=== PATIENT | male | born 1950 | race Caucasian/White ===

== ENCOUNTER → 2019-08-03 | Outpatient (CLI) | payer MEDICARE ==
--- NOTE | 2019-08-06 12:59 | PE ---
Nuclear medicine PET/CT HISTORY: Multiple myeloma, initial Patient received 10.8 mCi F-18 FDG intravenously in delayed scanning whole-body scanning was performe d. Localization and attenuation correction CT scan was performed. No comparisons Neck, head and chest: There is no evident cervical, supraclavicular,, axillary, mediastinal, or hilar adenopathy. No evident lung mass. There is a right pleural effusion present. Paraspinal increased so ft tissue within the chest may be field representative of extra medullary hematopoiesis, some mild increase d uptake noted in the paraspinal location at the level of the fifth and sixth ribs at the costoverteb ral junction on the left. ABDOMEN: No retroperitoneal adenopathy or ascites. No suspicious liver uptake. Osseous structures: There is abnormal uptake present within the ninth rib laterally on the right with SUV 4.5 as well as 6 rib anteriorly on the right with SUV 5.6, some mild associated bone expansion i s present at these levels. Overall mild increased uptake present within the bones may be due to marro w stimulation. The left ischium also show some mild increased uptake as compared to the right, SUV 5. 9. Postop changes in the right knee causing artifact, there is some mild uptake noted at this level and within the medullary aspect of the distal right femur. Mild uptake present at the posterior left calc aneus may be related to heel spur. Some mild increased uptake noted in the bilateral shoulders. IMPRESSION: Findings compatible with patient's history of multiple myeloma. Right pleural effusion, e xtra medullary hematopoiesis.
== END | disposition home or self-care (01) ==
LOC: RADPETMAIN 15:05
PROVIDERS: ATTEND Internal Medicine Medical Oncology
DX: J90 Pleural effusion, not elsewhere classified (principal); C90.00 Multiple myeloma not having achieved remission
CPT/HCPCS: 78815; A9552

== ENCOUNTER → 2019-08-14 | Outpatient (CLI) | payer MEDICARE ==
--- NOTE | 2019-08-14 12:42 | XR ---
EXAMINATION TYPE: XR thoracic spine complete DATE OF EXAM: 08/14/2019 CLINICAL HISTORY: Multiple myeloma. Mid back pain after coughing TECHNIQUE: Frontal, lateral, and swimmer's view of thoracic spine are obtained. COMPARISON: 08/03/2019 PET/CT FINDINGS: There are trace bilateral pleural effusions. The thoracic spine vertebral bodies maintain n ormal vertebral body height and alignment. There is slight underpenetration on the lateral view and o verpenetration on the frontal view making evaluation of bone marrow in this patient with multiple mye shweta suboptimal. Recent PET/CT was performed however, which better evaluated the bone marrow. Multile fernando small anterior osteophytes are seen of the thoracic spine. IMPRESSION: 1. No acute fracture or dislocation is seen in the thoracic spine. 2. Bone marrow is better evaluated on the recent PET/CT of 08/03/2019 for lytic lesions given suboptim al technique. 3. Mild degenerative disc disease of the thoracic spine.
== END | disposition home or self-care (01) ==
LOC: RADXRMAIN 11:42
PROVIDERS: ATTEND Internal Medicine Hematology & Oncology
DX: C90.00 Multiple myeloma not having achieved remission (principal); M51.34 Other intervertebral disc degeneration, thoracic region; E78.5 Hyperlipidemia, unspecified; Z71.3 Dietary counseling and surveillance
CPT/HCPCS: 72072

== ENCOUNTER 2019-08-28 15:47 | Observation (INO) | payer MEDICARE ==
[2019-08-28] MEDS ORDERED: SODIUM CHLORIDE 0.9% 1,000 ML IV STA (16:41)
[2019-08-28] MEDS ORDERED: PANTOPRAZOLE 40 MG/10 ML VIAL IVP STA (16:41)
[2019-08-28] MEDS ORDERED: HYDROmorphone 1 MG/ML 1 ML SYRINGE IVP STA (16:42)
--- NOTE | 2019-08-28 16:46 | ED ---
Abdominal Pain HPI - General Chief Complaint: Abdominal Pain Stated Complaint: Abd.pain Time Seen by Provider: 08/28/19 16:00 Source: patient, RN notes reviewed Mode of arrival: ambulatory Limitations: no limitations - History of Present Illness Initial Comments: This is a 68-year-old male with a recent diagnosis of multiple myeloma which was apparently discovered after right knee surgery in June this past year who states he was sent in from his doctor's office for admission because of abdominal pain. He was seen here previously for abdominal pain discharge she seems related to be worse with movement in upright positioning at rest sees 2- 3/10 severity is up to a when he is moving and upright. He also relates it to perhaps taking his oral steroids. He denies any nausea vomiting fevers chills sweats no diarrhea he states his stool was low but darker than usual but no overt melena or bright red blood or dark red blood. No prior history of abdominal surgeries. No history of ulcers. There is a report that his hemoglobin was 10 and his symptoms dropped. MD Complaint: abdominal pain - Related Data Allergies Allergy/AdvReac Type Severity Reaction Status Date / Time No Known Allergies Allergy Verified 08/20/19 15:05 Review of Systems ROS Statement: Those systems with pertinent positive or pertinent negative responses have been documented in the HPI. ROS Other: All systems not noted in ROS Statement are negative. Past Medical History Past Medical History: Hyperlipidemia Additional Past Medical History / Comment(s): multiple myeloma diagnosed 06/2019. History of Any Multi-Drug Resistant Organisms: None Reported Past Surgical History: Orthopedic Surgery Past Psychological History: No Psychological Hx Reported Smoking Status: Never smoker Past Alcohol Use History: Rare Past Drug Use History: None Reported General Exam - General Exam Comments Initial Comments: This is a well-developed well-nourished awake alert oriented 3 male Limitations: no limitations General appearance: alert, anxious Head exam: Present: atraumatic, normocephalic, normal inspection Eye exam: Present: normal appearance, PERRL, EOMI. Absent: scleral icterus, conjunctival injection, periorbital swelling ENT exam: Present: normal exam, mucous membranes moist Neck exam: Present: normal inspection. Absent: tenderness, meningismus, lymphadenopathy Respiratory exam: Present: normal lung sounds bilaterally. Absent: respiratory distress, wheezes, rales, rhonchi, stridor Cardiovascular Exam: Present: regular rate, normal rhythm, normal heart sounds. Absent: systolic murmur, diastolic murmur, rubs, gallop, clicks GI/Abdominal exam: Present: soft, normal bowel sounds. Absent: distended, tenderness, guarding, rebound, rigid Rectal exam: Present: deferred Extremities exam: Present: normal inspection, full ROM, normal capillary refill. Absent: tenderness, pedal edema, joint swelling, calf tenderness Back exam: Present: normal inspection Neurological exam: Present: alert, oriented X3, CN II-XII intact Psychiatric exam: Present: normal affect, normal mood Skin exam: Present: warm, dry, intact, normal color. Absent: rash Course Vital Signs 08/28/19 15:48 Temperature 97.7 F Pulse Rate 75 Respiratory 17 Rate Blood Pressure 114/73 O2 Sat by Pulse 95 Oximetry Medical Decision Making - Medical Decision Making Case was discussed with Dr. Villanueva the patient will be admitted with GI consultation replaced IV fluids IV Protonix. Disposition Clinical Impression: Abdominal pain, Anemia, Multiple myeloma Disposition: ADMITTED IP TO THIS HOSP Condition: Fair Referrals: Boom Galvan MD [Primary Care Provider] - 1-2 days
[2019-08-28] MEDS ORDERED: NALOXONE 0.4 MG/ML 1 ML VIAL IV PRN (16:52)
[2019-08-28] MEDS: SODIUM CHLORIDE 0.9% 1,000 ML IV SCH (17:11)
[2019-08-28 17:21] LABS: ALT 140 U/L (4-49); AST 65 U/L (17-59); African American GFR (CKD) >90 (>60 ml/min/1.73 sqM); Albumin 3.7 g/dL (3.5-5.0); Alkaline Phosphatase 112 U/L (38-126); Amylase 50 U/L (30-110); Anion Gap 8 mmol/L; Blood Urea Nitrogen 19 mg/dL (9-20); Carbon Dioxide 30 mmol/L (22-30); Chloride 99 mmol/L (98-107); Creatine Kinase 39 U/L (55-170); Glucose 99 mg/dL (74-99); Non-African American GFR(CKD) 88 (>60 ml/min/1.73 sqM); Sodium 137 mmol/L (137-145); Total Protein 8.8 g/dL (6.3-8.2)
[2019-08-28 17:22] LABS: HCT 33.3 % (39.0-53.0); HGB 11.1 gm/dL (13.0-17.5); MCH 32.9 pg (25.0-35.0); MCHC 33.2 g/dL (31.0-37.0); MCV 98.9 fL (80.0-100.0); Macrocytosis Slight; Mean Platelet Volume 7.9; RBC 3.37 m/uL (4.30-5.90); RDW 15.4 % (11.5-15.5)
[2019-08-28 17:34] LABS: INR 1.1 (<1.2); Partial Thromboplastin Time 20.8 sec (22.0-30.0); Prothrombin Time 11.5 sec (9.0-12.0)
--- NOTE | 2019-08-28 17:34 | XR ---
EXAMINATION TYPE: XR KUB DATE OF EXAM: 08/28/2019 COMPARISON: NONE HISTORY: Pain TECHNIQUE: 2 views upright FINDINGS: There is no sign of intestinal obstruction or pneumoperitoneum. Fecal pattern is fairly nor mal. There is blunting of the costophrenic angles. There is some atelectasis right lung base. IMPRESSION: Pleural effusions and basilar atelectasis. No free air.
[2019-08-28 18:05] LABS: Band Neutrophils % 3 %; Lymphocytes # (M) 2.94 k/uL (1.0-4.8); Neutrophils % (M) 34 %; Nucleated Red Blood Cells 6 /100 WBC (0-0); Total Cells Counted 200; WBC 4.9 k/uL (3.8-10.6)
[2019-08-28 18:07] LABS: Platelet Count 46 k/uL (150-450); Polychromasia Present
[2019-08-28] MEDS ORDERED: DICYCLOMINE 10 MG CAP PO STA (18:10)
[2019-08-28] MEDS: HYDROmorphone 1 MG/ML 1 ML SYRINGE IVP PRN (21:10)
[2019-08-29 00:17] LABS: MCH 33.6 pg (25.0-35.0); MCV 98.8 fL (80.0-100.0); Macrocytosis Slight; Mean Platelet Volume 7.5; RBC 2.83 m/uL (4.30-5.90); RDW 15.6 % (11.5-15.5); WBC 4.7 k/uL (3.8-10.6)
[2019-08-29 00:23] LABS: Platelet Count 49 k/uL (150-450)
[2019-08-29 00:25] LABS: HGB 9.5 gm/dL (13.0-17.5)
[2019-08-29] MEDS: PANTOPRAZOLE 40 MG/10 ML VIAL IV SCH ×2 (02:10→10:03)
[2019-08-29 02:14] VITALS: RESP 16
[2019-08-29] MEDS: HYDROmorphone 1 MG/ML 1 ML SYRINGE IVP PRN ×3 (02:15→11:16)
[2019-08-29] MEDS: SODIUM CHLORIDE 0.9% 1,000 ML IV SCH ×2 (02:21→09:56)
[2019-08-29 02:45] LABS: Appearance,Urine Clear (Clear); Bacteria,Urine Rare /hpf; Bilirubin,Urine Negative (Negative); Blood,Urine Negative (Negative); Color,Urine Yellow; Glucose,Urine (UA) Negative (Negative); Ketones,Urine Negative (Negative); Leukocyte Esterase,Urine Trace (Negative); Mucus,Urine Few /hpf; Nitrite,Urine Negative (Negative); Protein,Urine 1+ (Negative); RBC,Urine 1 /hpf (0-5); Urobilinogen,Urine <2.0 mg/dL (<2.0); WBC,Urine 13 /hpf (0-5)
[2019-08-29] MEDS ORDERED: HYDROcodone/APAP 5-325MG 1 EACH TAB PO PRN (10:39)
[2019-08-29 10:52] LABS: HCT 29.6 % (39.0-53.0); MCH 33.5 pg (25.0-35.0); MCHC 33.9 g/dL (31.0-37.0); MCV 98.9 fL (80.0-100.0); Macrocytosis Slight; Mean Platelet Volume 7.9; RDW 15.6 % (11.5-15.5); WBC 4.8 k/uL (3.8-10.6)
[2019-08-29 10:53] LABS: Platelet Count 42 k/uL (150-450)
[2019-08-29 10:55] LABS: Albumin 3.4 g/dL (3.5-5.0); Calcium 9.6 mg/dL (8.4-10.2); Potassium 4.2 mmol/L (3.5-5.1); Total Bilirubin 0.9 mg/dL (0.2-1.3); Total Protein 8.1 g/dL (6.3-8.2)
[2019-08-29] MEDS ORDERED: LIDOCAINE 1% INJ 10MG/ML (20 ML MDV) ONE (12:20)
[2019-08-29] MEDS ORDERED: PROPOFOL 10 MG/ML 20 ML VIAL IV ONE (12:20)
[2019-08-29] MEDS ORDERED: IV FLUID CONTINUATION 1,000 ML IV ONE (12:20)
[2019-08-29] MEDS ORDERED: DICYCLOMINE 20 MG TAB PO PRN (12:50)
--- NOTE | 2019-08-29 13:58 | P.HPIM ---
History of Present Illness H&P Date: 08/29/19 HISTORY AND PHYSICAL AND DISCHARGE SUMMARY: This is a 68-year-old male patient of Dr. Galvan with past medical history of multiple myeloma, diagnosed and June 2019. Patient was at [facility] for bilateral knee surgery and was found to have abnormal lab work. Only one knee, right knee arthroplasty was completed and patient subsequent only followed up with Dr. Phillips, diagnosed with multiple myeloma and started chemotherapy on August 14. Patient is on dexamethasone 40 mg every week on Tuesday and he started Velcade on August 21 and receives this on Tuesdays and Fridays in the clinic. Patient is also on Revlimid for 14 days straight. Patient was in the doctor's office regarding abdominal pain seemed to be worse with positioning. It seems to started when he started taking steroids. He denies having any nausea, vomiting, fever, chills, diarrhea. No obvious tarry stool or bright red bleeding rectally. She also has history of pleural effusion that is being monitored by oncology, osteoarthritis. Patient came into [facility] emergency center for evaluation. He was found to have hemoglobin of 11.1 followed by 9.5 and [address] Villanueva spoke with Dr. Argueta early this morning at [facility] regarding this patient and he was thus set up for EGD. Patient remains in the emergency center and was started on Bentyl, Protonix IV twice daily and IV fluids. Patient subsequently underwent EGD and has been cleared by for discharge home. EGD revealed mild gastritis antrum body biopsy, duodenal biopsies. Pathology report reveals mild chronic gastritis. H. pylori not identified. No biopsy negative for histopathologic abnormality. Review of Systems Constitutional: Denies chills, Denies fatigue, Denies fever, Denies lethargy, Denies malaise, Denies poor appetite Eyes: denies blurred vision, denies pain Ears, nose, mouth and throat: Denies headache, Denies sore throat, Denies vertigo Cardiovascular: Denies chest pain, Denies decreased exercise tolerance, Denies dyspnea on exertion, Denies leg edema, Denies lightheadedness, Denies shortness of breath, Denies syncope Respiratory: Denies cough, Denies cough with sputum, Denies dyspnea, Denies excessive sputum, Denies hemoptysis, Denies home oxygen, Denies sleep apnea Gastrointestinal: Denies abdominal pain, Denies change in bowel habits, Denies diarrhea, Denies loss of appetite, Denies nausea, Denies vomiting Genitourinary: Denies dysuria, Denies urinary frequency, Denies urinary hesitancy Musculoskeletal: Denies low back pain Integumentary: Denies pruritus, Denies rash Neurological: Denies numbness, Denies weakness Psychiatric: Denies anxiety, Denies depression Endocrine: Denies fatigue, Denies weight change Past Medical History Past Medical History: Hyperlipidemia Additional Past Medical History / Comment(s): multiple myeloma diagnosed 06/2019. History of Any Multi-Drug Resistant Organisms: None Reported Past Surgical History: Orthopedic Surgery Additional Past Surgical History / Comment(s): Right total knee arthroplasty with previous arthroscopically on bilateral knees, 2 arthroscopics on shoulders, left elbow, EGD Past Psychological History: No Psychological Hx Reported Smoking Status: Never smoker Past Alcohol Use History: Rare Additional Past Alcohol Use History / Comment(s): Patient is a lifelong nonsmoker, no illicit drug use, no marijuana use. Occasional alcohol use. Past Drug Use History: None Reported - Past Family History Father Additional Family Medical History / Comment(s): Father is alive at age 93 yrs old with no major medical problems. He has had a total hip replacement. Mother Family Medical History: Cancer Additional Family Medical History / Comment(s): Mother at age 69 from Multiple myeloma/bone cancer. Brother(s) Additional Family Medical History / Comment(s): Patient has 1 brother that is alive at age 72 with no major medical problems. Patient does not have any sisters. Patient has 2 sons with no major medical problems. Medications and Allergies Home Medications Medication Instructions Recorded Confirmed Type Aspirin EC [Ecotrin Low Dose] 81 mg PO HS 08/28/19 08/28/19 History Atorvastatin Calcium [Lipitor] 10 mg PO HS 08/28/19 08/28/19 History Bortezomib 1 dose IV TUFR 08/28/19 08/28/19 History Dexamethasone 40 mg PO TU 08/28/19 08/28/19 History HYDROcodone/APAP 5-325MG [[place] 1 tab PO Q6H PRN 08/28/19 08/28/19 History 5-325] Lenalidomide [Revlimid] 25 mg PO DIRECTED 08/28/19 08/28/19 History Omeprazole 20 mg PO DAILY 08/28/19 08/28/19 History Ondansetron HCl [Zofran] 4 mg PO Q8H PRN 08/28/19 08/28/19 History Sucralfate [Carafate] 1 gm PO ACHS 08/28/19 08/28/19 History Dicyclomine [Bentyl] 20 mg PO QID PRN 30 Days #90 tab 08/29/19 Rx Pantoprazole Sodium [Protonix] 40 mg PO BID #60 tablet. 08/29/19 Rx Allergies Allergy/AdvReac Type Severity Reaction Status Date / Time No Known Allergies Allergy Verified 08/28/19 17:58 Physical Exam Vitals: Vital Signs Temp Pulse Resp BP Pulse Ox 08/29/19 07:32 79 16 126/89 100 08/29/19 02:12 97.9 F 94 16 112/79 94 L 08/28/19 20:07 98.2 F 87 18 110/59 93 L 08/28/19 15:48 97.7 F 75 17 114/73 95 Intake and Output 08/28/19 08/29/19 08/29/19 22:59 06:59 14:59 Other: # Voids 2 Weight 114.441 kg Gen: This is a 68-year-old male. Patient is resting on the ER stretcher and appears to be comfortable and in no acute distress. Patient's is at bedside. HEENT: Head is atraumatic, normocephalic. Pupils equal, round. Sclerae is anicteric. NECK: Supple. No JVD. No lymphadenopathy. No thyromegaly. LUNGS: Diminished at the bases bilaterally. Clear to auscultation. No wheezes or rhonchi. No intercostal retractions. HEART: Regular rate and rhythm. No murmur. ABDOMEN: Soft. Bowel sounds are present. No masses. Epigastric tenderness. EXTREMITIES: Trace bilateral pedal edema. No calf tenderness. NEUROLOGICAL: Patient is awake, alert and oriented x3. Cranial nerves 2 through 12 are grossly intact. Results CBC & Chem 7: 08/29/19 10:23 08/29/19 10:23 Labs: Abnormal Lab Results - Last 24 Hours (Table) 08/28/19 08/28/19 08/28/19 Range/Units 16:55 16:55 16:55 RBC 3.37 L (4.30-5.90) m/uL Hgb 11.1 L (13.0-17.5) gm/dL Hct 33.3 L (39.0-53.0) % RDW (11.5-15.5) % Plt Count 46 L (150-450) k/uL Nucleated RBCs 6 H (0-0) /100 WBC APTT 20.8 L (22.0-30.0) sec AST 65 H (17-59) U/L ALT 140 H (4-49) U/L Creatine Kinase 39 L (55-170) U/L Total Protein 8.8 H (6.3-8.2) g/dL Urine Protein (Negative) Ur Leukocyte Esterase (Negative) Urine WBC (0-5) /hpf Urine Bacteria (None) /hpf Urine Mucus (None) /hpf 08/28/19 08/29/19 Range/Units 23:44 02:31 RBC 2.83 L (4.30-5.90) m/uL Hgb 9.5 L D (13.0-17.5) gm/dL Hct 28.0 L (39.0-53.0) % RDW 15.6 H (11.5-15.5) % Plt Count 49 L (150-450) k/uL Nucleated RBCs (0-0) /100 WBC APTT (22.0-30.0) sec AST (17-59) U/L ALT (4-49) U/L Creatine Kinase (55-170) U/L Total Protein (6.3-8.2) g/dL Urine Protein 1+ H (Negative) Ur Leukocyte Esterase Trace H (Negative) Urine WBC 13 H (0-5) /hpf Urine Bacteria Rare H (None) /hpf Urine Mucus Few H (None) /hpf Assessment and Plan Plan: 1. Steroid induced gastritis. Patient will be discharged home on Protonix 40 mg twice daily. 2. Multiple myeloma on prednisone weekly along with Velcade and Revlimid. 3. Osteoarthritis status post right total knee arthroplasty, stable with generalized osteoarthritis. 4. Anemia of chronic disease,. Patient placed as an observation status. Discharge plan: Home Discharge Medication List Aspirin EC [Ecotrin Low Dose] 81 mg PO HS 08/28/19 [History] Atorvastatin Calcium [Lipitor] 10 mg PO HS 08/28/19 [History] Bortezomib 1 dose IV TUFR 08/28/19 [History] Dexamethasone 40 mg PO TU 08/28/19 [History] HYDROcodone/APAP 5-325MG [[place] 5-325] 1 tab PO Q6H PRN 08/28/19 [History] Lenalidomide [Revlimid] 25 mg PO DIRECTED 08/28/19 [History] Omeprazole 20 mg PO DAILY 08/28/19 [History] Ondansetron HCl [Zofran] 4 mg PO Q8H PRN 08/28/19 [History] Sucralfate [Carafate] 1 gm PO ACHS 08/28/19 [History] Dicyclomine [Bentyl] 20 mg PO QID PRN 30 Days #90 tab 08/29/19 [Rx] Pantoprazole Sodium [Protonix] 40 mg PO BID #60 tablet. 08/29/19 [Rx] Impression and plan of care have been directed as dictated by the signing physician. Didi Edmond nurse practitioner acting as scribe for signing physician.
[2019-08-29 14:23] VITALS: BP 155/83; PULSE 89; TEMP 98.4
--- NOTE | 2019-08-30 15:25 | P.CONS ---
History of Present Illness - Reason for Consult Consult date: 08/29/19 Abdominal pain Requesting physician: Citlali Villanueva - Chief Complaint Abdominal pain - History of Present Illness 68-year-old male with a medical history significant for multiple myeloma status post 2 cycles of chemotherapy for which he was treated with dexamethasone, Velca de and Revlimid presented to the hospital due to complaints of severe abdominal pain. The patient reports severe epigastric abdominal pain which she feels is worse with eating. Pain is sharp and intense without radiation. No prior episodes of similar pain. He denies any NSAID use. No prior EGD. Colonoscopy was approximately 6 months ago. On presentation hemoglobin found to be 9.5 and then 10 on repeat blood draw with WBC 4.8 and platelet count 42,000. Review of Systems REVIEW OF SYSTEMS: CONSTITUTIONAL: Denies any fevers, chills, weight change or fatigue. CARDIOVASCULAR: Denies any chest pain, palpitations high or low blood pressures RESPIRATORY: Denies any shortness of breath, hemoptysis or cough. GENITOURINARY: No dysuria or hematuria. MUSCULOSKELETAL: No weakness reported. SKIN: Denies any new rashes or lesions, jaundice or pallor. PSYCHIATRIC: Denies any depression or anxiety. NEUROLOGY: Denies headache, denies any new focal deficits. EARS/NOSE/THROAT: No recent hearing change, congestion, nasal discharge or sore throat. EYES: No pain in eyes, discharge or change in vision. GASTROINTESTINAL: As per HPI. Past Medical History Past Medical History: Hyperlipidemia Additional Past Medical History / Comment(s): multiple myeloma diagnosed 08/2018. History of Any Multi-Drug Resistant Organisms: None Reported Past Surgical History: Orthopedic Surgery Past Psychological History: No Psychological Hx Reported Smoking Status: Never smoker Past Alcohol Use History: Rare Past Drug Use History: None Reported - Past Family History Father Additional Family Medical History / Comment(s): Father is alive at age 93 yrs old with no major medical problems. He has had a total hip replacement. Mother Family Medical History: Cancer Additional Family Medical History / Comment(s): Mother at age 69 from Multiple myeloma/bone cancer. Brother(s) Additional Family Medical History / Comment(s): Patient has 1 brother that is alive at age 72 with no major medical problems. Patient does not have any sisters. Patient has 2 sons with no major medical problems. Medications and Allergies Home Medications Medication Instructions Recorded Confirmed Type Aspirin EC [Ecotrin Low Dose] 81 mg PO HS 08/28/19 08/28/19 History Atorvastatin Calcium [Lipitor] 10 mg PO HS 08/28/19 08/28/19 History Bortezomib 1 dose IV TUFR 08/28/19 08/28/19 History Dexamethasone 40 mg PO TU 08/28/19 08/28/19 History HYDROcodone/APAP 5-325MG [[place] 1 tab PO Q6H PRN 08/28/19 08/28/19 History 5-325] Lenalidomide [Revlimid] 25 mg PO DIRECTED 08/28/19 08/28/19 History Omeprazole 20 mg PO DAILY 08/28/19 08/28/19 History Ondansetron HCl [Zofran] 4 mg PO Q8H PRN 08/28/19 08/28/19 History Sucralfate [Carafate] 1 gm PO ACHS 08/28/19 08/28/19 History Dicyclomine [Bentyl] 20 mg PO QID PRN 30 Days #90 tab 08/29/19 Rx Pantoprazole Sodium [Protonix] 40 mg PO BID #60 tablet. 08/29/19 Rx Allergies Allergy/AdvReac Type Severity Reaction Status Date / Time No Known Allergies Allergy Verified 08/28/19 17:58 Physical Exam Vitals: Vital Signs Temp Pulse Resp BP Pulse Ox 08/29/19 07:32 79 16 126/89 100 08/29/19 02:12 97.9 F 94 16 112/79 94 L 08/28/19 20:07 98.2 F 87 18 110/59 93 L 08/28/19 15:48 97.7 F 75 17 114/73 95 Intake and Output 08/28/19 08/29/19 08/29/19 22:59 06:59 14:59 Other: # Voids 2 Weight 114.441 kg On physical examination, patient appears comfortable in no apparent distress. HEAD: Normocephalic, atraumatic. EYES: No scleral icterus. No conjunctival injection. MOUTH: No lesions, tongue midline. NECK: Trachea midline, no gross abnormalities. CHEST: Clear to auscultation with no wheezing or rhonchi appreciated. HEART: Regular rate and rhythm. ABDOMEN: Soft, obese. Bowel sounds are positive. No organomegaly. No guarding or rigidity. EXTREMITIES: No pedal edema. SKIN: No rashes, no jaundice. NEUROLOGIC: Alert and oriented x3. No focal deficits. Results CBC & Chem 7: 08/29/19 10:23 08/29/19 10:23 Labs: Abnormal Lab Results - Last 24 Hours (Table) 08/28/19 08/28/19 08/28/19 Range/Units 16:55 16:55 16:55 RBC 3.37 L (4.30-5.90) m/uL Hgb 11.1 L (13.0-17.5) gm/dL Hct 33.3 L (39.0-53.0) % RDW (11.5-15.5) % Plt Count 46 L (150-450) k/uL Nucleated RBCs 6 H (0-0) /100 WBC APTT 20.8 L (22.0-30.0) sec Chloride (98-107) mmol/L Glucose (74-99) mg/dL AST 65 H (17-59) U/L ALT 140 H (4-49) U/L Creatine Kinase 39 L (55-170) U/L Total Protein 8.8 H (6.3-8.2) g/dL Albumin (3.5-5.0) g/dL Urine Protein (Negative) Ur Leukocyte Esterase (Negative) Urine WBC (0-5) /hpf Urine Bacteria (None) /hpf Urine Mucus (None) /hpf 08/28/19 08/29/19 08/29/19 Range/Units 23:44 02:31 10:23 RBC 2.83 L 3.00 L (4.30-5.90) m/uL Hgb 9.5 L D 10.0 L (13.0-17.5) gm/dL Hct 28.0 L 29.6 L (39.0-53.0) % RDW 15.6 H 15.6 H (11.5-15.5) % Plt Count 49 L 42 L (150-450) k/uL Nucleated RBCs (0-0) /100 WBC APTT (22.0-30.0) sec Chloride (98-107) mmol/L Glucose (74-99) mg/dL AST (17-59) U/L ALT (4-49) U/L Creatine Kinase (55-170) U/L Total Protein (6.3-8.2) g/dL Albumin (3.5-5.0) g/dL Urine Protein 1+ H (Negative) Ur Leukocyte Esterase Trace H (Negative) Urine WBC 13 H (0-5) /hpf Urine Bacteria Rare H (None) /hpf Urine Mucus Few H (None) /hpf 08/29/19 Range/Units 10:23 RBC (4.30-5.90) m/uL Hgb (13.0-17.5) gm/dL Hct (39.0-53.0) % RDW (11.5-15.5) % Plt Count (150-450) k/uL Nucleated RBCs (0-0) /100 WBC APTT (22.0-30.0) sec Chloride 97 L (98-107) mmol/L Glucose 106 H (74-99) mg/dL AST (17-59) U/L ALT 130 H (4-49) U/L Creatine Kinase (55-170) U/L Total Protein (6.3-8.2) g/dL Albumin 3.4 L (3.5-5.0) g/dL Urine Protein (Negative) Ur Leukocyte Esterase (Negative) Urine WBC (0-5) /hpf Urine Bacteria (None) /hpf Urine Mucus (None) /hpf Microbiology - Last 24 Hours (Table) 08/29/19 02:31 Urine Culture - Preliminary Urine,Clean Catch Abdominal x-ray: report reviewed (No acute intra-abdominal findings on abdominal x-ray.) Assessment and Plan (1) Abdominal pain Narrative/Plan: 68-year-old male reporting epigastric abdominal pain described as sharp and intense. He does feel pain may be positional and worse with a deep breath. Patient has been on high-dose steroid therapy. Unclear if symptoms are secondary to peptic ulcer disease, gastritis, esophagitis or other GI-related pathology or secondary to bone infiltration from multiple myeloma. Status: Acute Code(s): R10.9 - UNSPECIFIED ABDOMINAL PAIN SNOMED Code(s): 06889858 (2) Multiple myeloma Status: Acute Code(s): C90.00 - MULTIPLE MYELOMA NOT HAVING ACHIEVED REMISSION SNOMED Code(s): 631737263 Plan: Supportive care Nothing by mouth PPI therapy Plan for urgent EGD for further evaluation Further recommendations pending findings of EGD Thank you for allowing us to participate in the care of the patient
--- NOTE | 2019-08-30 15:34 | P.PCN ---
Date of Procedure: 08/29/19 Description of Procedure: BRIEF HISTORY: 68-year-old male with a medical history significant for multiple myeloma status post 2 cycles of chemotherapy for which he was treated with dexamethasone, Velcade and Revlimid presented to the hospital due to complaints of severe abdominal pain. The patient reports severe epigastric abdominal pain which she feels is worse with eating. Pain is sharp and intense without radiation. No prior episodes of similar pain. He denies any NSAID use. No prior EGD. Colonoscopy was approximately 6 months ago. On presentation hemoglobin found to be 9.5 and then 10 on repeat blood draw with WBC 4.8 and platelet count 42,000. PROCEDURE PERFORMED: Esophagogastroduodenoscopy with biopsy. PREOPERATIVE DIAGNOSIS: Epigastric abdominal pain, anemia. ESTIMATED BLOOD LOSS: Minimal. IV sedation per anesthesia. PROCEDURE: After informed consent was obtained, the patient was brought into the endoscopy unit. IV sedation was administered by Anesthesia under continuous monitoring. Initially the Olympus GIF-190 video endoscope was inserted into the mouth. Esophagus intubated without any difficulty. It was gradually advanced into the stomach and duodenum and carefully examined. The bulb and the second part of the duodenum appeared normal, with biopsies taken. The scope at this time was withdrawn to the stomach, adequately insufflated with air, and upon careful examination, mucosa of the antrum, body, cardia and the fundus appeared normal, except for some mild punctate erythema in the antrum and body suggestive of mild gastritis with biopsies taken. The scope was then withdrawn into the esophagus. The GE junction was located at 39 cm from the incisors. The esophagus appeared normal. There were no erosions or ulcerations seen and the patient tolerated the procedure well. IMPRESSION: 1. Mild gastritis antrum body, biopsied. 2. Duodenal biopsies. RECOMMENDATIONS: The findings of this examination were discussed with the patient and his . Okay to resume diet. Continue PPI therapy. We'll provide the patient with a trial of Bentyl therapy, otherwise okay for discharge home if otherwise medically stable.
== END 2019-08-29 14:21 | disposition home or self-care (01) ==
LOC: EC 15:47 → 4SSUR 16:52 → 5NMEDONC 23:16
PROVIDERS: ADMIT Family Medicine; ATTEND Family Medicine
DX: K29.50 Unspecified chronic gastritis without bleeding (principal); C90.00 Multiple myeloma not having achieved remission; M15.0 Primary generalized (osteo)arthritis; E78.5 Hyperlipidemia, unspecified; D63.8 Anemia in other chronic diseases classified elsewhere; J90 Pleural effusion, not elsewhere classified; Z79.82 Long term (current) use of aspirin; Z79.891 Long term (current) use of opiate analgesic; Z79.52 Long term (current) use of systemic steroids; Z79.899 Other long term (current) drug therapy; Z96.651 Presence of right artificial knee joint; Z80.7 Family history of other malignant neoplasms of lymphoid, hematopoietic and related tissues; Z80.8 Family history of malignant neoplasm of other organs or systems; Z92.21 Personal history of antineoplastic chemotherapy
CPT/HCPCS: 96376 ×2; 96361 ×2; 96374; 96375; 99285; 36415; 86900; 86901; 88305; 80053 ×2; 82150; 82550; 83690; 84484; 85025; 85027 ×2; 85610; 85730; 86850; 81001; 87086; 87077; 87186; 74018; 43239; G0378 ×2; J2001; J1170 ×2; J2704; C9113 ×2

== ENCOUNTER → 2019-09-11 | Outpatient (CLI) | payer MEDICARE ==
--- NOTE | 2019-09-11 15:50 | CT ---
EXAMINATION TYPE: CT angio chest DATE OF EXAM: 09/11/2019 COMPARISON: 08/20/2019 HISTORY: 68-year-old male SOB. Hx multiple myeloma, pleural effusion. TECHNIQUE: Contiguous axial scanning of the chest performed with IV Contrast, patient injected with 1 00 mL of Isovue 370. Coronal/sagittal MIP reconstructions performed. CT DLP: 541.50 mGycm Automated exposure control for dose reduction was used. FINDINGS: Heart normal size with trace anterior basilar pericardial fluid. No flattening of the interventricula r septum or reflux of contrast into the hepatic veins. Ectatic aortic root at 3.7 cm. Conventional arch vessel branching anatomy. No thoracic lymphadenopathy by CT size criteria. Borderline suboptimal opacification of the pulmonary arterial system. Motion artifacts in the left lo wer lobe limiting assessment of the segmental and more distal arterial branches. Unable to exclude em boli in these locations. No evidence for pulmonary embolus elsewhere within the lungs. Moderate right and small left pleural effusions, similar to slightly increased in size from 08/20/2019. There is adjacent partial atelectasis of the basilar right lower lobe and subsegmental atelectasis b asilar left lower lobe. There seems to be cortical lucency involving the right lateral ninth rib, axial image 143. Old healed left-sided rib fracture deformity. A few bilateral ribs show callus of subacute to chronic fracture deformities. These were present back on 08/03/2019. New band of atelectasis right midlung. No other consolidation or pleural effusion seen. Spleen remains enlarged measuring at least 15.9 cm. Bones: Diffuse osseous heterogeneity with scattered areas of focal lucency. Minimal overall vertebral body height loss of T6 remains unchanged from 08/20/2013. Anterior endplate spondylosis lower thoracic spine. No new vertebral compression collapse. IMPRESSION: 1. BORDERLINE SUBOPTIMAL CONTRAST BOLUS. ADDITIONALLY, MOTION ARTIFACT IN THE LEFT LOWER LOBE FURTHER LIMITING ASSESSMENT. SEGMENTAL AND MORE DISTAL ARTERIAL BRANCHES IN THE LEFT LOWER LOBE ARE NONDIAGN OSTIC AND EMBOLI IN THESE LOCATIONS CANNOT BE EXCLUDED ON THE BASIS OF THIS EXAM. NO DEFINITE PULMONA RY EMBOLUS SEEN ELSEWHERE WITHIN THE LUNGS. 2. MODERATE RIGHT AND SMALL LEFT PLEURAL EFFUSION WITH PROMINENT ADJACENT ATELECTASIS, SIMILAR TO SLI GHTLY INCREASED FROM 08/20/2019. 3. THERE MAY BE A SUBTLE NONDISPLACED FRACTURE OF THE RIGHT LATERAL NINTH RIB. CORRELATE FOR ANY FOCA L PAIN HERE. OTHERWISE, MULTIPLE SCATTERED SUBACUTE TO CHRONIC RIB FRACTURES. 4. DIFFUSE OSSEOUS HETEROGENEITY IN KEEPING WITH PATIENT'S KNOWN MULTIPLE MYELOMA. SPLENOMEGALY OF 16 CM.
== END | disposition home or self-care (01) ==
LOC: RADCTMAIN 14:43
PROVIDERS: ATTEND Internal Medicine Hematology & Oncology
DX: C90.00 Multiple myeloma not having achieved remission (principal); J90 Pleural effusion, not elsewhere classified; J98.11 Atelectasis; S22.49XA Multiple fractures of ribs, unspecified side, initial encounter for closed fracture
CPT/HCPCS: 71275; Q9967

== ENCOUNTER 2019-09-21 08:20 | Day surgery (SDC) | payer MEDICARE ==
[2019-09-21 09:42] LABS: Mean Platelet Volume 9.1
[2019-09-21 09:48] LABS: Platelet Count 34 k/uL (150-450)
[2019-09-21 09:50] LABS: INR 1.1 (<1.2); Prothrombin Time 11.1 sec (9.0-12.0)
[2019-09-21 10:47] VITALS: RESP 18
--- NOTE | 2019-09-21 11:34 | XR ---
EXAMINATION TYPE: XR chest 1V portable DATE OF EXAM: 09/21/2019 COMPARISON: NONE HISTORY: Status post right-sided thoracentesis TECHNIQUE: Single frontal view of the chest is obtained. FINDINGS: There are trace bilateral pleural effusions. Cardiomediastinal silhouette is upper limits of normal size. No postprocedural pneumothorax seen. No pulmonary vascular congestion. Osseous struct ures appear intact. Surgical anchor of the left humerus. IMPRESSION: Trace bilateral pleural effusions. No postprocedural pneumothorax.
--- NOTE | 2019-09-21 12:20 | US ---
Ultrasound-guided therapeutic and diagnostic thoracentesis DATE OF EXAM: 09/21/2019 CLINICAL HISTORY: Right pleural effusion The procedure was discussed with the patient. The risks, complications, benefits, and alternatives we re discussed and any questions were answered. Informed consent was obtained. The patient was placed supine on the ultrasound table and prepped and draped in the usual sterile fas hion. All elements of maximal barrier and sterile technique were utilized. Under ultrasound guidance, access into the pleural space was obtained, via the thoracentesis catheter system and direct ultrasound guidance. Ap proximately 1.3 liters of serous fluid was removed. Sample sent to pathology for analysis. Pathology pending. The patient was stable throughout the procedure and remained stable upon discharge from Department of Radiology. IMPRESSION: 1. Successful therapeutic and diagnostic thoracentesis under ultrasound guidance.
[2019-09-21 12:52] VITALS: TEMP 98.1
[2019-09-21 12:57] VITALS: BP 117/68; PULSE 88
[2019-09-21 16:44] LABS: Appearance,BF Cloudy; Color,BF Orange; Nucleated Cells, Body Fluid 3550 /uL; RBC, Body Fluid 13950 /uL
[2019-09-21 16:53] LABS: Mononuclear WBC,Body Fluid 100 %; Total Cells Counted,Body Fluid 100
[2019-09-21 21:24] LABS: Total Protein, Body Fluid 5300 mg/dL
== END 2019-09-21 12:30 | disposition home or self-care (01) ==
LOC: RADPROMAIN 08:20
PROVIDERS: ATTEND Internal Medicine Hematology & Oncology
DX: J90 Pleural effusion, not elsewhere classified (principal); C90.00 Multiple myeloma not having achieved remission; D69.6 Thrombocytopenia, unspecified
CPT/HCPCS: 89050; 85049; 85610; 87070; 87205; 84157; 36415; 71045; 32555; P9035; 88108; 88305; 88341; 88342

== ENCOUNTER → 2019-12-03 | Outpatient (CLI) | payer MEDICARE ==
--- NOTE | 2019-12-03 10:01 | US ---
EXAMINATION TYPE: US venous doppler duplex LE RT DATE OF EXAM: 12/03/2019 9:49 AM COMPARISON: NONE CLINICAL HISTORY: K21.9 Gastro-esophageal reflux disease without eso. Leg pain and swelling. SIDE PERFORMED: Right TECHNIQUE: The lower extremity deep venous system is examined utilizing real time linear array sonog prabha with graded compression, doppler sonography and color-flow sonography. VESSELS IMAGED: External Iliac Vein (EIV) Common Femoral Vein Deep Femoral Vein Greater Saphenous Vein * Femoral Vein Popliteal Vein Small Saphenous Vein * Proximal Calf Veins (* superficial vessels) Right Leg: Negative for DVT IMPRESSION: No evidence for DVT.
== END | disposition home or self-care (01) ==
LOC: RADUSWWP 09:29
PROVIDERS: ATTEND Internal Medicine Hematology & Oncology
DX: M79.661 Pain in right lower leg (principal); R22.41 Localized swelling, mass and lump, right lower limb

== ENCOUNTER → 2019-12-14 | Outpatient (CLI) | payer MEDICARE ==
--- NOTE | 2019-12-14 10:39 | XR ---
Right femur and right knee HISTORY: Multiple myeloma, C 90.0, N08.9, Z 71.3, E 78.5 2 views of the right knee and frontal lateral views of the right femur on 4 images, 2 views of the ri ght hip No comparisons Patient shows post right knee arthroplasty change. There is anatomic alignment. Ossific densities wit hin the soft tissues anterior to the knee are well-corticated and indeterminate. Small lytic lucenci es are present within the proximal right femur and femoral neck and visualized pelvis the acetabulum. Marginal spurring present at the right hip. Lytic lucency also present within distal diaphysis of th e right femur. IMPRESSION: Lytic lucencies may be due to patient's multiple myeloma. 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
== END | disposition home or self-care (01) ==
LOC: RADXRMAIN 09:53
PROVIDERS: ATTEND Internal Medicine Hematology & Oncology
DX: M16.11 Unilateral primary osteoarthritis, right hip (principal); C90.00 Multiple myeloma not having achieved remission; N18.9 Chronic kidney disease, unspecified; E78.5 Hyperlipidemia, unspecified
CPT/HCPCS: 73502

== ENCOUNTER 2020-01-10 15:50 | Inpatient (IN) | payer MEDICARE ==
--- NOTE | 2020-01-10 16:22 | ED ---
Extremity Problem HPI - General Chief complaint: Extremity Problem,Nontraumatic Stated complaint: right leg swelling Time Seen by Provider: 01/10/20 15:57 Source: patient, family, RN notes reviewed Mode of arrival: wheelchair Limitations: physical limitation - History of Present Illness Initial comments: This is a 69-year-old male with a history of multiple myeloma who did have his last chemotherapy today who was sent over because of peripheral edema especially in the right side for the past couple days he states his right leg and calf. Tender he also has some he believes of fluid retention to his abdomen. He apparently was informed that he may have kidney issues with his current situation. No prior history kidney disorders however. He denies any fevers or sweats he does feel chilled but it is somewhat cool in the emergency department this time. No cough no phlegm production no other modifying factors at this time - Related Data Home Medications Medication Instructions Recorded Confirmed Aspirin EC [Ecotrin Low Dose] 162 mg PO DAILY 08/28/19 01/10/20 Atorvastatin Calcium [Lipitor] 10 mg PO HS 08/28/19 01/10/20 Bortezomib 1 dose IV MOTH 08/28/19 01/10/20 Dexamethasone 40 mg PO TU 08/28/19 01/10/20 Lenalidomide [Revlimid] 25 mg PO DIRECTED 08/28/19 01/10/20 Acetaminophen [Tylenol Extra 1,000 mg PO Q6H PRN 09/13/19 01/10/20 Strength] Calcium Carbonate 500 mg PO BID 01/10/20 01/10/20 Docusate Sodium [Dok] 100 mg PO DAILY 01/10/20 01/10/20 Morphine Sulfate ER [Ms Contin] 30 mg PO Q12H 01/10/20 01/10/20 Zolpidem Tartrate [Ambien] 10 mg PO HS PRN 01/10/20 01/10/20 oxyCODONE-APAP 10-325MG [Percocet 1 tab PO Q6H PRN 01/10/20 01/10/20 10-325 mg] Allergies Allergy/AdvReac Type Severity Reaction Status Date / Time No Known Allergies Allergy Verified 01/10/20 16:49 Review of Systems ROS Statement: Those systems with pertinent positive or pertinent negative responses have been documented in the HPI. ROS Other: All systems not noted in ROS Statement are negative. Past Medical History Past Medical History: Hyperlipidemia Additional Past Medical History / Comment(s): multiple myeloma diagnosed 06/2019. History of Any Multi-Drug Resistant Organisms: None Reported Past Surgical History: Orthopedic Surgery Additional Past Surgical History / Comment(s): Right total knee arthroplasty with previous arthroscopically on bilateral knees, 2 arthroscopics on shoulders, left elbow, EGD, rt hip replacement Past Anesthesia/Blood Transfusion Reactions: No Reported Reaction Additional Past Anesthesia/Blood Transfusion Reaction / Comment(s): Pt has received platelets in the past without reaction. Past Psychological History: No Psychological Hx Reported Smoking Status: Never smoker Past Alcohol Use History: Rare Past Drug Use History: None Reported - Past Family History Father Additional Family Medical History / Comment(s): Father is alive at age 93 yrs old with no major medical problems. He has had a total hip replacement. Mother Family Medical History: Cancer Additional Family Medical History / Comment(s): Mother at age 69 from Multiple myeloma/bone cancer. Brother(s) Additional Family Medical History / Comment(s): Patient has 1 brother that is alive at age 72 with no major medical problems. Patient does not have any sisters. Patient has 2 sons with no major medical problems. General Exam - General Exam Comments Initial Comments: This is a well-developed well-nourished awake alert oriented 3 male Limitations: physical limitation General appearance: alert, in no apparent distress Head exam: Present: atraumatic, normocephalic, normal inspection Eye exam: Present: normal appearance, PERRL, EOMI. Absent: scleral icterus, conjunctival injection, periorbital swelling ENT exam: Present: normal exam, mucous membranes moist Neck exam: Present: normal inspection, full ROM, other (No stridor JVD or bruits). Absent: tenderness, meningismus, lymphadenopathy Respiratory exam: Present: normal lung sounds bilaterally. Absent: respiratory distress, wheezes, rales, rhonchi, stridor Cardiovascular Exam: Present: regular rate, normal rhythm, normal heart sounds. Absent: systolic murmur, diastolic murmur, rubs, gallop, clicks GI/Abdominal exam: Present: soft, normal bowel sounds. Absent: distended, tenderness, guarding, rebound, rigid Extremities exam: Present: full ROM, tenderness (Tennis palpation of the right calf no palpable cords), normal capillary refill, pedal edema. Absent: joint swelling, calf tenderness Back exam: Present: normal inspection Neurological exam: Present: alert, oriented X3, CN II-XII intact Psychiatric exam: Present: normal affect, normal mood Skin exam: Present: warm, dry, intact, normal color. Absent: rash Course Vital Signs 01/10/20 01/10/20 15:52 18:00 Temperature 97.5 F L 97.8 F Pulse Rate 68 64 Respiratory 18 18 Rate Blood Pressure 110/65 118/62 O2 Sat by Pulse 97 96 Oximetry Medical Decision Making - Medical Decision Making I did discuss findings the patient family as well as with Dr. Galvan. Patient will be admitted placed on IV diuretics. - Lab Data Result diagrams: 01/10/20 16:30 01/10/20 16:30 Lab Results 01/10/20 01/10/20 01/10/20 Range/Units 16:30 16:30 16:30 WBC 3.7 L (3.8-10.6) k/uL RBC 2.75 L (4.30-5.90) m/uL Hgb 8.9 L (13.0-17.5) gm/dL Hct 27.2 L (39.0-53.0) % MCV 98.9 (80.0-100.0) fL MCH 32.3 (25.0-35.0) pg MCHC 32.6 (31.0-37.0) g/dL RDW 19.0 H (11.5-15.5) % Plt Count 133 L (150-450) k/uL Neutrophils % (Manual) 55 % Lymphocytes % (Manual) 45 % Neutrophils # (Manual) 2.04 (1.3-7.7) k/uL Lymphocytes # (Manual) 1.67 (1.0-4.8) k/uL Nucleated RBCs 0 (0-0) /100 WBC Manual Slide Review Performed Hypochromasia Slight Poikilocytosis (manual Present Anisocytosis Slight Macrocytosis Slight D-Dimer (<0.60) mg/L FEU Sodium 136 L (137-145) mmol/L Potassium 3.8 (3.5-5.1) mmol/L Chloride 98 (98-107) mmol/L Carbon Dioxide 31 H (22-30) mmol/L Anion Gap 7 mmol/L BUN 20 (9-20) mg/dL Creatinine 0.85 (0.66-1.25) mg/dL Est GFR (CKD-EPI)AfAm >90 (>60 ml/min/1.73 sqM) Est GFR (CKD-EPI)NonAf >90 (>60 ml/min/1.73 sqM) Glucose 104 H (74-99) mg/dL Calcium 9.0 (8.4-10.2) mg/dL Magnesium 1.9 (1.6-2.3) mg/dL Total Bilirubin 0.5 (0.2-1.3) mg/dL AST 57 (17-59) U/L ALT 26 (4-49) U/L Alkaline Phosphatase 131 H (38-126) U/L Creatine Kinase 51 L (55-170) U/L Troponin I <0.012 (0.000-0.034) ng/mL NT-Pro-B Natriuret Pep pg/mL Total Protein 7.7 (6.3-8.2) g/dL Albumin 3.5 (3.5-5.0) g/dL 01/10/20 01/10/20 Range/Units 16:30 16:30 WBC (3.8-10.6) k/uL RBC (4.30-5.90) m/uL Hgb (13.0-17.5) gm/dL Hct (39.0-53.0) % MCV (80.0-100.0) fL MCH (25.0-35.0) pg MCHC (31.0-37.0) g/dL RDW (11.5-15.5) % Plt Count (150-450) k/uL Neutrophils % (Manual) % Lymphocytes % (Manual) % Neutrophils # (Manual) (1.3-7.7) k/uL Lymphocytes # (Manual) (1.0-4.8) k/uL Nucleated RBCs (0-0) /100 WBC Manual Slide Review Hypochromasia Poikilocytosis (manual Anisocytosis Macrocytosis D-Dimer 9.84 H (<0.60) mg/L FEU Sodium (137-145) mmol/L Potassium (3.5-5.1) mmol/L Chloride (98-107) mmol/L Carbon Dioxide (22-30) mmol/L Anion Gap mmol/L BUN (9-20) mg/dL Creatinine (0.66-1.25) mg/dL Est GFR (CKD-EPI)AfAm (>60 ml/min/1.73 sqM) Est GFR (CKD-EPI)NonAf (>60 ml/min/1.73 sqM) Glucose (74-99) mg/dL Calcium (8.4-10.2) mg/dL Magnesium (1.6-2.3) mg/dL Total Bilirubin (0.2-1.3) mg/dL AST (17-59) U/L ALT (4-49) U/L Alkaline Phosphatase (38-126) U/L Creatine Kinase (55-170) U/L Troponin I (0.000-0.034) ng/mL NT-Pro-B Natriuret Pep 352 pg/mL Total Protein (6.3-8.2) g/dL Albumin (3.5-5.0) g/dL - Radiology Data Radiology results: report reviewed (I did review the imaging and report evidence of pleural effusion no DVT no PE seen.), image reviewed Disposition Clinical Impression: Peripheral edema, Multiple myeloma, Anemia, Failure to thrive in adult Disposition: ADMITTED IP TO THIS HOSP Condition: Fair Referrals: Boom Galvan MD [Primary Care Provider] - 1-2 days
[2020-01-10 16:57] LABS: Anisocytosis Slight; HCT 27.2 % (39.0-53.0); HGB 8.9 gm/dL (13.0-17.5); Hypochromasia Slight; MCH 32.3 pg (25.0-35.0); MCHC 32.6 g/dL (31.0-37.0); MCV 98.9 fL (80.0-100.0); Macrocytosis Slight; Platelet Count 133 k/uL (150-450); RBC 2.75 m/uL (4.30-5.90); WBC 3.7 k/uL (3.8-10.6)
--- NOTE | 2020-01-10 16:57 | XR ---
EXAMINATION TYPE: XR chest 2V DATE OF EXAM: 01/10/2020 COMPARISON: NONE HISTORY: Right-sided thoracentesis TECHNIQUE: 2 views FINDINGS: There is blunting of the costophrenic angles. Heart size is normal. There is mild pulmonary congestion. There are no hilar masses. IMPRESSION: Bilateral pleural effusions increased on the right side and unchanged on the left side co mpared to old exam. There is probably mild heart failure. Pulmonary congestion increased compared to old exam.
[2020-01-10 17:00] LABS: ALT 26 U/L (4-49); AST 57 U/L (17-59); African American GFR (CKD) >90 (>60 ml/min/1.73 sqM); Albumin 3.5 g/dL (3.5-5.0); Alkaline Phosphatase 131 U/L (38-126); Anion Gap 7 mmol/L; Blood Urea Nitrogen 20 mg/dL (9-20); Carbon Dioxide 31 mmol/L (22-30); Chloride 98 mmol/L (98-107); Creatine Kinase 51 U/L (55-170); Glucose 104 mg/dL (74-99); Magnesium 1.9 mg/dL (1.6-2.3); Non-African American GFR(CKD) >90 (>60 ml/min/1.73 sqM); Potassium 3.8 mmol/L (3.5-5.1); Sodium 136 mmol/L (137-145); Total Bilirubin 0.5 mg/dL (0.2-1.3); Total Protein 7.7 g/dL (6.3-8.2)
[2020-01-10 17:24] LABS: Lymphocytes # (M) 1.67 k/uL (1.0-4.8); Neutrophils # (M) 2.04 k/uL (1.3-7.7); Neutrophils % (M) 55 %; Nucleated Red Blood Cells 0 /100 WBC (0-0); Poikilocytosis (M) Present; Total Cells Counted 100
--- NOTE | 2020-01-10 17:27 | US ---
EXAMINATION TYPE: US venous doppler duplex LE RT DATE OF EXAM: 01/10/2020 5:05 PM COMPARISON: US CLINICAL HISTORY: Calf pain with peripheral edema DVT suspected. Pain right leg, recent right hip rep lacement SIDE PERFORMED: Right TECHNIQUE: The lower extremity deep venous system is examined utilizing real time linear array sonog prabha with graded compression, doppler sonography and color-flow sonography. VESSELS IMAGED: External Iliac Vein (EIV) Common Femoral Vein Deep Femoral Vein Greater Saphenous Vein * Femoral Vein Popliteal Vein Small Saphenous Vein * Proximal Calf Veins (* superficial vessels) Right Leg: Negative for DVT IMPRESSION: No evidence of right leg deep vein thrombosis.
[2020-01-10] MEDS ORDERED: FUROSEMIDE 10 MG/ML 4 ML VIAL IV STA (17:30)
--- NOTE | 2020-01-10 18:17 | CT ---
EXAMINATION TYPE: CT angio chest DATE OF EXAM: 01/10/2020 COMPARISON: 09/11/2019 HISTORY: SOB, elevated d-dimer CT DLP: 610.1 mGycm Automated exposure control for dose reduction was used. CONTRAST: Performed with IV Contrast, patient injected with 90 mL of Isovue 370. There are 3-D post processed images. There are bilateral pleural effusions and larger on the right side. Heart size is fairly normal. Ther e are no hilar masses. There is no mediastinal adenopathy. Thoracic aorta is intact. I see no filling defects in the pulmonary arteries. There is some atelectasis at the right lung base. There is osteopenia. There is anterior wedging of T11 T8 T7 and T6 and T5 vertebra up to 30%. There i s fracture of the body of the sternum with 50% offset. The manubrium appears intact. Shoulder joints are intact. There is some rib deformity consistent with old fractures. I see no definite acute rib fr acture. IMPRESSION: Bilateral pleural effusions with right basilar atelectasis. Pleural fluid improved compared to old ex am. No evidence of pulmonary embolism. Multiple osteoporotic type thoracic compression fractures slig htly increased compared to old exam. There is sternal fracture that appears new compared to old exam.
[2020-01-10] MEDS ORDERED: NALOXONE 0.4 MG/ML 1 ML VIAL IV PRN (19:07)
[2020-01-10] MEDS ORDERED: ACETAMINOPHEN TAB 500 MG TAB PO PRN (19:09)
[2020-01-10] MEDS ORDERED: BORTEZOMIB IV SCH (19:15)
[2020-01-10] MEDS ORDERED: NON FORMULARY DRUG (Lenalidomide [Revlimid] 25 MG) PO SCH (19:15)
[2020-01-10] MEDS: oxyCODONE-APAP 10-325MG 1 EACH TAB PO PRN (20:15)
[2020-01-10] MEDS: MORPHINE SULFATE ER 30 MG TABLET PO SCH (21:46)
[2020-01-10] MEDS: CALCIUM CARBONATE 500 MG CHEWABLE PO SCH (21:48)
[2020-01-10] MEDS: ATORVASTATIN 10 MG TAB PO SCH (21:50)
--- NOTE | 2020-01-10 23:23 | P.HPIM ---
History of Present Illness H&P Date: 01/10/20 Chief Complaint: Anasarca, possible DVT, multiple myeloma, severe anemia, th rombocytopenia, 69-year-old male one of my office patient with past medical history of hyperlipidemia, hypertension, BPH and multiple myeloma who had right total knee arthroplasty few month ago at [facility] with a complication specially with been thrombocytopenic and dyes peripheral smear was of normal patient was diagnosed with multiple myeloma start to see oncologist at [facility] and furthermore transferred to Dr. Garcia service Patient presented to the office today with concern of severe anasarca and swelling in both legs worsening in the left on the right side significant pain and discomfort with irritation when try to ambulate and walk. Also patient was having significant shortness of breath. Patient was seen in the office with a current anasarca and worsening symptoms high suspicion for DVT patient ended up going to the emergency department was seen and evaluated with his current finding d-dimer was quite bit elevated CT of the chest came back with no sign of pulmonary embolism but bilateral pleural effusion and mild atelectasis. Patient venous Doppler was negative. Was started on IV diuretics with his current anasarca and symptoms with the bilateral pleural effusion worsening shortness of breath decided to admit patient to the hospital will be on IV diuretics will be seen oncology and cardiology to stabilize his symptom and decrease significant anasarca on edema. Review of Systems CONSTITUTIONAL: Well-developed no acute respiratory distress. EYES: No icterus sclerae, no conjunctivitis. EARS, NOSE, MOUTH, THROAT, and FACE: No sore throat, lymphadenopathy, carotid bruits or deformity. RESPIRATORY: Positive shortness of breath no cough or wheezes. CARDIOVASCULAR: No CP, Palpitation, PND, Orthopnea, or angina. GASTROINTESTINAL: Slight abdominal pain with nausea without vomiting no diarrhea.. GENITOURINARY: Negative for Hematuria or UTI, no kidney stones. INTEGUMENT/BREAST: Negative for any muscular injury with mild osteoarthritis.. HEMATOLOGIC/LYMPHATIC: Positive for anemia thrombocytopenia and multiple myeloma. MUSCULOSKELTAL: Negative for Myalgia or arthralgia. NEURLOGICAL: No LOC, Sz or syncope, blurred vision dizziness or abnormality.. BEHAVIORAL/PSYCH: Negative. ENDOCRINE: Negative. Past Medical History Past Medical History: Hyperlipidemia Additional Past Medical History / Comment(s): multiple myeloma diagnosed 06/2019. History of Any Multi-Drug Resistant Organisms: None Reported Past Surgical History: Orthopedic Surgery Additional Past Surgical History / Comment(s): Right total knee arthroplasty with previous arthroscopically on bilateral knees, 2 arthroscopics on shoulders, left elbow, EGD, rt hip replacement Past Anesthesia/Blood Transfusion Reactions: No Reported Reaction Additional Past Anesthesia/Blood Transfusion Reaction / Comment(s): Pt has received platelets in the past without reaction. Past Psychological History: No Psychological Hx Reported Smoking Status: Never smoker Past Alcohol Use History: Rare Past Drug Use History: None Reported - Past Family History Father Additional Family Medical History / Comment(s): Father is alive at age 93 yrs old with no major medical problems. He has had a total hip replacement. Mother Family Medical History: Cancer Additional Family Medical History / Comment(s): Mother at age 69 from Multiple myeloma/bone cancer. Brother(s) Additional Family Medical History / Comment(s): Patient has 1 brother that is alive at age 72 with no major medical problems. Patient does not have any sisters. Patient has 2 sons with no major medical problems. Medications and Allergies Home Medications Medication Instructions Recorded Confirmed Type Aspirin EC [Ecotrin Low Dose] 162 mg PO DAILY 08/28/19 01/10/20 History Atorvastatin Calcium [Lipitor] 10 mg PO HS 08/28/19 01/10/20 History Bortezomib 1 dose IV MOTH 08/28/19 01/10/20 History Dexamethasone 40 mg PO TU 08/28/19 01/10/20 History Lenalidomide [Revlimid] 25 mg PO DIRECTED 08/28/19 01/10/20 History Acetaminophen [Tylenol Extra 1,000 mg PO Q6H PRN 09/13/19 01/10/20 History Strength] Calcium Carbonate 500 mg PO BID 01/10/20 01/10/20 History Docusate Sodium [Dok] 100 mg PO DAILY 01/10/20 01/10/20 History Morphine Sulfate ER [Ms Contin] 30 mg PO Q12H 01/10/20 01/10/20 History Zolpidem Tartrate [Ambien] 10 mg PO HS PRN 01/10/20 01/10/20 History oxyCODONE-APAP 10-325MG [Percocet 1 tab PO Q6H PRN 01/10/20 01/10/20 History 10-325 mg] Allergies Allergy/AdvReac Type Severity Reaction Status Date / Time No Known Allergies Allergy Verified 01/10/20 16:49 Physical Exam Vitals: Vital Signs Temp Pulse Resp BP Pulse Ox 01/10/20 21:55 98.2 F 101 H 16 118/69 97 01/10/20 19:19 97.8 F 102 H 16 114/72 01/10/20 18:00 97.8 F 64 18 118/62 96 01/10/20 15:52 97.5 F L 68 18 110/65 97 Intake and Output 01/10/20 01/10/20 01/10/20 06:59 14:59 22:59 Output Total 1050 Balance -1050 Output: Urine 1050 Other: # Voids 6 Weight 111.13 kg General Appearance: Alert, cooperative, no distress, appears stated age. Neck HEENT: Supple, no lymphadenopathy, no thyroid enlargement, no carotid bruits. Lungs: Clear to auscultation without crackles or wheezes no rhonchi, no deformity. Chest Wall: Chest wall normal expansion with deep inspiration no tenderness and no deformity was found on exam, no costochondral pain or discomfort. Heart: Regular rate and rhythm, S1, S2 normal, no murmur, rub or gallop. Back: Symmetric, no curvature, ROM normal, no CVA tenderness. Abdomen: Soft positive bowel sounds slight discomfort in the right upper quadrant and left upper quadrant area with thickness of service The skin similar to lymphedema expanding higher. Extremities: Severe edema 2+ bilaterally worse in the left and the right side decreased possible bursitis pedis mild arthralgia bilateral knee with scar tissue from the recent surgery look fine. Pulses: 2+ and symmetric. Skin: Skin color, texture, tugor normal, no rashes or lesions. Neurologic: Alert oriented x3 cranial nerves II through XII intact, no motor deficit, no abnormal balance or gait. Results CBC & Chem 7: 01/10/20 16:30 01/10/20 16:30 Labs: Abnormal Lab Results - Last 24 Hours (Table) 01/10/20 01/10/20 01/10/20 Range/Units 16:30 16:30 16:30 WBC 3.7 L (3.8-10.6) k/uL RBC 2.75 L (4.30-5.90) m/uL Hgb 8.9 L (13.0-17.5) gm/dL Hct 27.2 L (39.0-53.0) % RDW 19.0 H (11.5-15.5) % Plt Count 133 L (150-450) k/uL D-Dimer 9.84 H (<0.60) mg/L FEU Sodium 136 L (137-145) mmol/L Carbon Dioxide 31 H (22-30) mmol/L Glucose 104 H (74-99) mg/dL Alkaline Phosphatase 131 H (38-126) U/L Creatine Kinase 51 L (55-170) U/L Assessment and Plan Assessment: 1 severe anasarca and edema: Patient was started on Lasix 40 mg IV twice a day shooting for at least 10 pound less than the next 2 weeks. 2 severe edema: See #1. 3 severe multiple myeloma: He seen oncology follow treatment regularly. 4 hyperlipidemia: Remain on atorvastatin. 5 chronic pain syndrome: Patient has been on morphine sulfate 50 mg every 12 hours along with oxycodone 10/325 mg every 4 hours as needed. 6 severe leukopenia and anemia with thrombocytopenia: Most likely from chemotherapy recently patient seen oncology on regular basis. 7 chronic kidney disease: Stage II, creatinine still marginal with elevated BUN. 8 DVT prophylaxis: Patient will have knee-high STERLING hose no anticoagulation subcutaneous. 9 chronic pain syndrome: Has been on morphine hydrocodone. 10 CODE STATUS: Full code. Admit patient to inpatient status for more than 2 night stay.
[2020-01-11] MEDS: oxyCODONE-APAP 10-325MG 1 EACH TAB PO PRN ×3 (03:37→23:20)
[2020-01-11] MEDS: FUROSEMIDE 10 MG/ML 4 ML VIAL IV SCH ×2 (05:47→17:37)
[2020-01-11] MEDS: ASPIRIN 81 MG PO SCH (08:52)
[2020-01-11] MEDS: DOCUSATE 100 MG CAP PO SCH (08:52)
[2020-01-11] MEDS: NON FORMULARY DRUG (Lenalidomide [Revlimid] 25 MG) PO SCH (08:52)
[2020-01-11] MEDS: MORPHINE SULFATE ER 30 MG TABLET PO SCH ×2 (08:52→21:59)
[2020-01-11] MEDS: CALCIUM CARBONATE 500 MG CHEWABLE PO SCH ×2 (08:52→21:59)
[2020-01-11] MEDS: SPIRONOLACTONE 25 MG TAB PO SCH ×2 (10:31→21:59)
[2020-01-11 10:38] LABS: African American GFR (CKD) >90 (>60 ml/min/1.73 sqM); Anion Gap 8 mmol/L; Blood Urea Nitrogen 19 mg/dL (9-20); Calcium 8.4 mg/dL (8.4-10.2); Carbon Dioxide 32 mmol/L (22-30); Chloride 96 mmol/L (98-107); Glucose 122 mg/dL (74-99); Non-African American GFR(CKD) >90 (>60 ml/min/1.73 sqM); Potassium 3.8 mmol/L (3.5-5.1); Sodium 136 mmol/L (137-145)
[2020-01-11 11:16] LABS: Anisocytosis Slight; Basophils % (A) 1 %; Eosinophils % (A) 1 %; HCT 28.6 % (39.0-53.0); HGB 9.1 gm/dL (13.0-17.5); Hypochromasia Slight; Lymphocytes % (A) 33 %; MCH 31.2 pg (25.0-35.0); MCHC 31.7 g/dL (31.0-37.0); MCV 98.5 fL (80.0-100.0); Macrocytosis Slight; Monocytes # (A) 0.2 k/uL (0-1.0); Monocytes % (A) 5 %; Neutrophils # (A) 1.7 k/uL (1.3-7.7); Neutrophils % (A) 56 %; Platelet Count 129 k/uL (150-450); RDW 18.8 % (11.5-15.5)
--- NOTE | 2020-01-11 12:50 | P.PN ---
Subjective Progress Note Date: 01/11/20 69-year-old male one of my office patient with past medical history of hyperlipidemia, hypertension, BPH and multiple myeloma who had right total knee arthroplasty few month ago at [facility] with a complication specially with been thrombocytopenic and dyes peripheral smear was of normal patient was diagnosed with multiple myeloma start to see oncologist at [facility] and furthermore transferred to Dr. Garcia service Patient presented to the office today with concern of severe anasarca and swelling in both legs worsening in the left on the right side significant pain and discomfort with irritation when try to ambulate and walk. Also patient was having significant shortness of breath. Patient was seen in the office with a current anasarca and worsening symptoms high suspicion for DVT patient ended up going to the emergency department was seen and evaluated with his current finding d-dimer was quite bit elevated CT of the chest came back with no sign of pulmonary embolism but bilateral pleural effusion and mild atelectasis. Patient venous Doppler was negative. Was started on IV diuretics with his current anasarca and symptoms with the bilateral pleural effusion worsening shortness of breath decided to admit patient to the hospital will be on IV diuretics will be seen oncology and cardiology to stabilize his symptom and decrease significant anasarca on edema. 01/10: Patient has had some improvement of his breathing. He denies any chest pain. He is unable to sleep in the hospital bed. We will add in Aldactone and GRAHMA hose. PT evaluation will be requested as well as consult with Dr. Garcia. Repeat blood work reveals sodium 136, potassium 3.8, chloride 96, CO2 32, BUN 19 creatinine 2.84. Blood sugar 122. ProBNP 276. WBC 3.0, hemoglobin 9.1, platelet count 129. Patient has been afebrile, heart rate 95, blood pressure 104/53, pulse ox 96% on room air. Anticipate probably discharge on the weekend. Review of Systems CONSTITUTIONAL: Well-developed no acute respiratory distress. EYES: No icterus sclerae, no conjunctivitis. EARS, NOSE, MOUTH, THROAT, and FACE: No sore throat, lymphadenopathy, carotid bruits or deformity. RESPIRATORY: Positive shortness of breath no cough or wheezes. CARDIOVASCULAR: No CP, Palpitation, PND, Orthopnea, or angina. GASTROINTESTINAL: Slight abdominal pain with nausea without vomiting no diarrhea.. GENITOURINARY: Negative for Hematuria or UTI, no kidney stones. INTEGUMENT/BREAST: Negative for any muscular injury with mild osteoarthritis.. HEMATOLOGIC/LYMPHATIC: Positive for anemia thrombocytopenia and multiple myeloma. MUSCULOSKELTAL: Negative for Myalgia or arthralgia. NEURLOGICAL: No LOC, Sz or syncope, blurred vision dizziness or abnormality.. BEHAVIORAL/PSYCH: Negative. ENDOCRINE: Negative. Physical Examination General Appearance: Alert, cooperative, no distress, appears stated age. Patient is sitting in chair and appears to be comfortable. No acute respiratory distress. Neck HEENT: Supple, no lymphadenopathy, no thyroid enlargement, no carotid bruits. Lungs: Clear to auscultation without crackles or wheezes no rhonchi, no deformity. Chest Wall: Chest wall normal expansion with deep inspiration no tenderness and no deformity was found on exam, no costochondral pain or discomfort. Heart: Regular rate and rhythm, S1, S2 normal, no murmur, rub or gallop. Back: Symmetric, no curvature, ROM normal, no CVA tenderness. Abdomen: Soft positive bowel sounds slight discomfort in the right upper quadrant and left upper quadrant area with thickness of skin similar to lymphedema expanding higher. Extremities: Severe edema 2+ bilaterally worse in the left and the right side decreased possible bursitis pedis mild arthralgia bilateral knee with scar tissue from the recent surgery look fine. Pulses: 2+ and symmetric. Skin: Skin color, texture, tugor normal, no rashes or lesions. Neurologic: Alert oriented x3 cranial nerves II through XII intact, no motor deficit, no abnormal balance or gait. Assessment and Plan 1 severe anasarca and edema. Continue Lasix 40 mg IV every 12 hours, add Aldactone 25 mg twice daily. Monitor I&O and daily weights. Graham hose bilateral. 2 severe edema: See #1. 3 severe multiple myeloma: He seen oncology follow treatment regularly. Consult with Dr. Garcia added. 4 hyperlipidemia: Remain on atorvastatin. 5 chronic pain syndrome: Patient has been on morphine sulfate 50 mg every 12 hours along with oxycodone 10/325 mg every 4 hours as needed. 6 severe leukopenia and anemia with thrombocytopenia: Most likely from chemotherapy recently patient seen oncology on regular basis. 7 chronic kidney disease: Stage II, creatinine still marginal with elevated BUN. 8 DVT prophylaxis: Patient will have knee-high GRAHAM hose no anticoagulation subcutaneous. 9 chronic pain syndrome: Has been on morphine hydrocodone. 10 CODE STATUS: Full code. 11. COVID-19 infection not present. Discharge plan: home with [facility] Tuesday or Tuesday. Impression and plan of care have been directed as dictated by the signing physician. Didi Edmond nurse practitioner acting as scribe for signing physician. Objective - Vital Signs Vital signs: Vital Signs Temp 98.0 F 01/11/20 07:00 Pulse 95 01/11/20 07:00 Resp 16 01/11/20 07:56 BP 104/53 01/11/20 07:00 Pulse Ox 96 01/11/20 07:00 Intake & Output 01/10/20 01/11/20 01/11/20 18:59 06:59 18:59 Output Total 2650 1000 Balance -2650 -1000 Weight 111.13 kg 111.13 kg Output: Urine 2650 1000 Other: # Voids 6 1 - Labs CBC & Chem 7: 01/11/20 09:16 01/11/20 09:16 Labs: Abnormal Lab Results - Last 24 Hours (Table) 01/10/20 01/10/20 01/10/20 Range/Units 16:30 16:30 16:30 WBC 3.7 L (3.8-10.6) k/uL RBC 2.75 L (4.30-5.90) m/uL Hgb 8.9 L (13.0-17.5) gm/dL Hct 27.2 L (39.0-53.0) % RDW 19.0 H (11.5-15.5) % Plt Count 133 L (150-450) k/uL D-Dimer 9.84 H (<0.60) mg/L FEU Sodium 136 L (137-145) mmol/L Carbon Dioxide 31 H (22-30) mmol/L Glucose 104 H (74-99) mg/dL Alkaline Phosphatase 131 H (38-126) U/L Creatine Kinase 51 L (55-170) U/L
--- NOTE | 2020-01-11 16:15 | P.CONS ---
History of Present Illness - Reason for Consult Consult date: 01/11/20 Multiple Myeloma Requesting physician: Didi Edmond - Chief Complaint BLE Swelling and SOB - History of Present Illness Manny is a pleasant patient well known to our practice for treatment and monitoring of his known Multiple Myeloma, primary Oncologist Dr. Benigno Phillips. He originally presented to [facility] for scheduled R knee arthroplasty, he was found to have mild anemia, as well as, mild CKI (Highest creatinine 1.25 Jun 2019). 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 He reported progressive L shoulder and mid/lower back pain with weakness X 6 months, but didn't seek medical attention. He had Bone marrow aspirate & biopsy on 07/16/[address] [facility] revealing 80% abnormal Plasma cell C/W plasma cell myeloma. PET Scan on 08/03/19 at [facility] revealed diffuse changes C/W multiple myeloma. He C'd/O progressive mid back pain to L side of spine 2 for 2 weeks after hearing a "crack" in spine. The patient is a lifetime non smoker, denies ETOH use, very healthy and normaly active. He was initiated on treatment with triplet therapy in August 2019 RVD. Tolerated well with the exception of abdominal pain which was further investigated with EGD - Gastritis. In September 2019 he complained of worsening SOB which was affecting his ADLs, chest imaging revealed pleural effusions and und erwent thoracentesis which resulted with cytology positive for plasma cells consistent with myeloma involvement. Earlier this month he was seen in follow-up and complained of Right sided hip pain. Inability to stand, walk 12/18/19: Not doing well, has severe R hip pain X 2 weeks, having hard time s tanding, walking or laying in flat position due to pain, as wellas, SOB. Dr. Phillips had referred him to Ortho oncology and Dr. Vieyra from Radiation oncology for possible palliative treatment to right hip. He had asked for PET scan also. His pain medications were changed to MS contin 30mg po BID, and Percocet from his PRN norco. PET was originally scheduled for 12/27/19 although during flat imagies he was noted to have non-displaced pathological fracture of his right femoral neck, as well as insufficiency fracture in the right sacral ala. He was referred sooner to ortho onc and his PET scan placed on hold for surgical interventionand underwent cemented hemiarthroplasty on 12/27/19. He is still recovering post operatively. He now presented to pcp with concerns of swelling in bilateral lower extremities (left greater than right) and difficulty walking. He was noted to have significant shortness of breath as well, therefore he was sent to emergency department for further evaluation and suspicion of thrombolic events (DVT and possible PE). CTA revealed no evidence of pulmonary emboli but did mention bilateral pleural effusions and atelectasis. BLE dopplers were also negative. He was started on diuretics intravenous and admitted through primary medical team. Cardiology was placed on consult to further evaluate as well as oncology with his recent treatment and ongoing diagnosis of multiple myeloma Review of Systems A 14 point review of systems assessed and completed and all negative except HPI Past Medical History Past Medical History: Hyperlipidemia Additional Past Medical History / Comment(s): multiple myeloma diagnosed 06/2019. History of Any Multi-Drug Resistant Organisms: None Reported Past Surgical History: Orthopedic Surgery Additional Past Surgical History / Comment(s): Right total knee arthroplasty with previous arthroscopically on bilateral knees, 2 arthroscopics on shoulders, left elbow, EGD, rt hip replacement Past Anesthesia/Blood Transfusion Reactions: No Reported Reaction Additional Past Anesthesia/Blood Transfusion Reaction / Comm: Pt has received platelets in the past without reaction. Past Psychological History: No Psychological Hx Reported Additional Psychological History / Comment(s): Pt resides with his spouse. He is independent. Smoking Status: Never smoker Past Alcohol Use History: Rare Additional Past Alcohol Use History / Comment(s): Patient is a lifelong nonsmoker, no illicit drug use, no marijuana use. Occasional alcohol use. Past Drug Use History: None Reported - Past Family History Father Additional Family Medical History / Comment(s): Father is alive at age 93 yrs old with no major medical problems. He has had a total hip replacement. Mother Family Medical History: Cancer Additional Family Medical History / Comment(s): Mother at age 69 from Multiple myeloma/bone cancer. Brother(s) Additional Family Medical History / Comment(s): Patient has 1 brother that is alive at age 72 with no major medical problems. Patient does not have any sisters. Patient has 2 sons with no major medical problems. Medications and Allergies Home Medications Medication Instructions Recorded Confirmed Type Aspirin EC [Ecotrin Low Dose] 162 mg PO DAILY 08/28/19 01/10/20 History Atorvastatin Calcium [Lipitor] 10 mg PO HS 08/28/19 01/10/20 History Bortezomib 1 dose IV MOTH 08/28/19 01/10/20 History Dexamethasone 40 mg PO TU 08/28/19 01/10/20 History Lenalidomide [Revlimid] 25 mg PO DIRECTED 08/28/19 01/10/20 History Acetaminophen [Tylenol Extra 1,000 mg PO Q6H PRN 09/13/19 01/10/20 History Strength] Calcium Carbonate 500 mg PO BID 01/10/20 01/10/20 History Docusate Sodium [Dok] 100 mg PO DAILY 01/10/20 01/10/20 History Morphine Sulfate ER [Ms Contin] 30 mg PO Q12H 01/10/20 01/10/20 History Zolpidem Tartrate [Ambien] 10 mg PO HS PRN 01/10/20 01/10/20 History oxyCODONE-APAP 10-325MG [Percocet 1 tab PO Q6H PRN 01/10/20 01/10/20 History 10-325 mg] Allergies Allergy/AdvReac Type Severity Reaction Status Date / Time No Known Allergies Allergy Verified 01/10/20 16:49 Physical Exam Vitals: Vital Signs Temp Pulse Pulse Resp BP BP Pulse Ox 01/11/20 07:56 16 01/11/20 07:00 98.0 F 95 16 104/53 96 01/11/20 01:57 97.7 F 97 113/61 97 01/10/20 22:08 98.2 F 102 H 118/74 94 L 01/10/20 21:55 98.2 F 101 H 16 118/69 97 01/10/20 19:19 97.8 F 102 H 16 114/72 01/10/20 18:00 97.8 F 64 18 118/62 96 01/10/20 15:52 97.5 F L 68 18 110/65 97 Intake and Output 01/10/20 01/11/20 01/11/20 22:59 06:59 14:59 Output Total 1050 1600 1000 Balance -1050 -1600 -1000 Output: Urine 1050 1600 1000 Other: # Voids 6 6 1 Weight 111.13 kg 111.13 kg - Constitutional General appearance: cooperative, mild distress - EENT Eyes: EOMI, dentition normal ENT: hard of hearing, normal oropharynx - Respiratory Respiratory: bilateral: diminished (bibasilar, mild increased effort) - Cardiovascular Heart rate: 104 Rhythm: regular leg Peripheral Edema: right: 3+, left: 4+ - Gastrointestinal General gastrointestinal: distended, normal bowel sounds, soft - Integumentary Integumentary: pale - Neurologic non-focal - Musculoskeletal Musculoskeletal: generalized weakness, left sided weakness - Psychiatric Psychiatric: A&O x's 3, appropriate affect Results CBC & Chem 7: 01/11/20 09:16 01/11/20 09:16 Labs: Abnormal Lab Results - Last 24 Hours (Table) 01/10/20 01/10/20 01/10/20 Range/Units 16:30 16:30 16:30 WBC 3.7 L (3.8-10.6) k/uL RBC 2.75 L (4.30-5.90) m/uL Hgb 8.9 L (13.0-17.5) gm/dL Hct 27.2 L (39.0-53.0) % RDW 19.0 H (11.5-15.5) % Plt Count 133 L (150-450) k/uL D-Dimer 9.84 H (<0.60) mg/L FEU Sodium 136 L (137-145) mmol/L Chloride (98-107) mmol/L Carbon Dioxide 31 H (22-30) mmol/L Glucose 104 H (74-99) mg/dL Alkaline Phosphatase 131 H (38-126) U/L Creatine Kinase 51 L (55-170) U/L 01/11/20 01/11/20 Range/Units 09:16 09:16 WBC 3.0 L (3.8-10.6) k/uL RBC 2.90 L (4.30-5.90) m/uL Hgb 9.1 L (13.0-17.5) gm/dL Hct 28.6 L (39.0-53.0) % RDW 18.8 H (11.5-15.5) % Plt Count 129 L (150-450) k/uL D-Dimer (<0.60) mg/L FEU Sodium 136 L (137-145) mmol/L Chloride 96 L (98-107) mmol/L Carbon Dioxide 32 H (22-30) mmol/L Glucose 122 H (74-99) mg/dL Alkaline Phosphatase (38-126) U/L Creatine Kinase (55-170) U/L CT scan - chest: report reviewed Assessment and Plan (1) Multiple myeloma Current Visit: Yes Status: Acute Code(s): C90.00 - MULTIPLE MYELOMA NOT HAVING ACHIEVED REMISSION SNOMED Code(s): 871254140 (2) Peripheral edema Current Visit: Yes Status: Acute Code(s): R60.9 - EDEMA, UNSPECIFIED SNOMED Code(s): 453485770 Plan: Assessment and recommendations: Maxx Myeloma: - recently on treatment with RVD and Xgeva - RVD last on 01/09 and Xgeva 12/10 (hold until clearance after surgical intervention of right femoral neck fracture) - Hold RVD until re-evaluation in office by Dr. Phillips - PET scan when improves - Recheck Electrophoresis, FLC, Immunoglbulins Pathological Non-Displaced Right Femoral Neck Fracture: - Status post intervention on 12/27/19 with ortho-onc - Difficult Recovery - Possible Rehab at discharge - Rec PT/OT rec BLE Edema and third spacing: - Nutritional component, decreased protein - Decreased Activity - Cardiology to evaluate Rodrigo-plastic related pain: - Continue with supportive and symptom management Thank you for allowing us to participate in the care of this patient will follow along with you Physician Attest: I have completed the full history and physical of this patient and agree with above dictation, dictated as a scribe
[2020-01-11] MEDS: IOPAMIDOL CONTRAST (ORAL USE) VIAL PO PRN ×2 (18:15→19:41)
[2020-01-11 18:49] LABS: Reticulocyte % 2.1 % (0.5-2.0)
[2020-01-11 19:04] LABS: INR 1.1 (<1.2); Prothrombin Time 11.6 sec (9.0-12.0)
[2020-01-11 19:14] LABS: Partial Thromboplastin Time 21.4 sec (22.0-30.0)
[2020-01-11 19:43] LABS: Uric Acid 8.3 mg/dL (3.5-8.5)
--- NOTE | 2020-01-11 21:30 | CT ---
EXAMINATION TYPE: CT abdomen pelvis w con DATE OF EXAM: 01/11/2020 COMPARISON: August 20, 2019 HISTORY: Assess for thrombus intra-abdomen versus obstruction. Abdominal distention and lower extremi ty swelling. Right hip replacement [address] DLP: 1900.7 mGycm Automated exposure control for dose reduction was used. CONTRAST: Performed with IV Contrast, patient injected with 100 mL of Isovue 300. There is moderate-sized right pleural effusion. There is right lower partial lobe atelectasis. There is small left pleural effusion. Heart size is normal. There is no pericardial effusion. Liver and gallbladder appear normal. Spleen appears intact. Bile ducts are not dilated. There is no e vidence of pancreatic mass. The stomach is intact. There is no adrenal mass. Kidneys show satisfactory contrast opacification. There is no hydronephrosi s. Ureters are not dilated. There is 2 mm calculus lower pole left kidney. There is right hip prosthe sis. Bladder distends smoothly. There is no inguinal hernia. There is no free fluid in the pelvis. Th ere is subcutaneous edema over the lumbar spine and right hemipelvis. There is a 8 x 5 cm retroperito arlette mass on the right side at the level of the upper sacrum with some anterior displacement of the r ight side iliac vessels. There is some lateral displacement of the right psoas muscle. There is no evidence of a bowel obstruction. Appendix is not definitely seen. There is no sign of thi ckened appendix. There is 15% depression superior endplate of L3 vertebra. There is anterior wedging of T10 vertebra 20%. There is L5 spondylolysis with minimal L5-S1 spondylolisthesis. There is 8 x 4 cm soft tissue mass along the lower right lateral chest wall extending through the ple ura. There is nondisplaced adjacent rib fracture. There is similar appearing 6 cm rounded mass of the left lower posterior chest wall. IMPRESSION: Right pleural effusion and right basilar atelectasis unchanged. Left pleural effusion and smaller rufus n old exam. Large mass on the right lower lateral chest wall increased in size compared to old exam a nd consistent with myeloma. 6 cm left lower posterior chest wall mass also consistent with myeloma ex tending into the pleura appears new compared to old exam.. Large retroperitoneal mass adjacent to the right side of the sacrum that could relate to myeloma and appears new compared to old exam. Subcutaneous edema increased compared to old exam.
[2020-01-11] MEDS: ATORVASTATIN 10 MG TAB PO SCH (21:59)
[2020-01-11] MEDS: ZOLPIDEM 10 MG TAB PO PRN (23:25)
[2020-01-12 02:15] LABS: Protein, Total 6.9 g/dL (6.2-8.2)
[2020-01-12] MEDS: oxyCODONE-APAP 10-325MG 1 EACH TAB PO PRN ×2 (05:07→15:21)
[2020-01-12] MEDS: FUROSEMIDE 10 MG/ML 4 ML VIAL IV SCH (05:07)
[2020-01-12 07:26] LABS: ALT 27 U/L (4-49); AST 69 U/L (17-59); African American GFR (CKD) >90 (>60 ml/min/1.73 sqM); Albumin 3.5 g/dL (3.5-5.0); Alkaline Phosphatase 156 U/L (38-126); Anion Gap 9 mmol/L; Blood Urea Nitrogen 18 mg/dL (9-20); Calcium 8.2 mg/dL (8.4-10.2); Carbon Dioxide 30 mmol/L (22-30); Chloride 95 mmol/L (98-107); Glucose 105 mg/dL (74-99); Magnesium 1.9 mg/dL (1.6-2.3); Non-African American GFR(CKD) >90 (>60 ml/min/1.73 sqM); Potassium 3.9 mmol/L (3.5-5.1); Sodium 134 mmol/L (137-145); Total Bilirubin 0.8 mg/dL (0.2-1.3)
[2020-01-12 07:49] LABS: Anisocytosis Slight; HGB 9.4 gm/dL (13.0-17.5); MCH 31.5 pg (25.0-35.0); MCHC 32.4 g/dL (31.0-37.0); Macrocytosis Slight; Mean Platelet Volume 7.8; Platelet Count 134 k/uL (150-450); RBC 2.99 m/uL (4.30-5.90); RDW 18.7 % (11.5-15.5); WBC 3.7 k/uL (3.8-10.6)
[2020-01-12 08:30] LABS: Immunoglobulin M <16.9 mg/dL (40.0-280.0)
[2020-01-12 08:36] LABS: Free Kappa Lt Chain Qnt, Serum 0.21 mg/dL (0.33-1.94)
[2020-01-12] MEDS: NON FORMULARY DRUG (Lenalidomide [Revlimid] 25 MG) PO SCH (08:53)
[2020-01-12] MEDS: MORPHINE SULFATE ER 30 MG TABLET PO SCH ×2 (09:56→21:01)
[2020-01-12] MEDS: DOCUSATE 100 MG CAP PO SCH (09:56)
[2020-01-12] MEDS: ASPIRIN 81 MG PO SCH (09:56)
[2020-01-12] MEDS: SPIRONOLACTONE 25 MG TAB PO SCH ×2 (09:57→21:01)
[2020-01-12] MEDS: CALCIUM CARBONATE 500 MG CHEWABLE PO SCH ×3 (09:57→20:55)
[2020-01-12 10:40] LABS: Band Neutrophils % 3 %; Lymphocytes # (M) 1.63 k/uL (1.0-4.8); Monocytes # (M) 0.59 k/uL (0-1.0); Neutrophils % (M) 37 %; Nucleated Red Blood Cells 0 /100 WBC (0-0); Total Cells Counted 100
[2020-01-12 10:42] LABS: Tear Drop Cells Present
--- NOTE | 2020-01-12 11:48 | P.PN ---
Subjective Progress Note Date: 01/12/20 The patient continues to have lower extremity swelling with some improvement with diuresis. He denies any increased shortness of breath. He states that he is able to ambulate to the bathroom and move around the room without much difficulty. No fever/chills/nausea/vomiting/obvious bleeding. Objective - Vital Signs Vital signs: Vital Signs Temp 97.9 F 01/12/20 07:00 Pulse 96 01/12/20 07:00 Resp 17 01/12/20 07:00 BP 108/67 01/12/20 07:00 Pulse Ox 90 L 01/12/20 07:00 Intake & Output 01/11/20 01/12/20 01/12/20 18:59 06:59 18:59 Intake Total 250 900 Output Total 1000 1100 525 Balance -750 -200 -525 Intake: Oral 250 900 Output: Urine 1000 1100 525 Other: # Voids 1 1 1 - Constitutional General appearance: Present: no acute distress - EENT Eyes: Present: EOMI ENT: Present: hearing grossly normal, normal oropharynx - Respiratory Respiratory: bilateral: diminished - Cardiovascular Rhythm: regular Heart sounds: normal: S1, S2 - Gastrointestinal General gastrointestinal: Present: normal bowel sounds, soft - Integumentary Integumentary: Present: normal - Neurologic Neurologic: Present: CNII-XII intact - Musculoskeletal Musculoskeletal Comment(s): Marked 2+ bilateral lower extremity edema Musculoskeletal: Present: generalized weakness, strength equal bilaterally - Psychiatric Psychiatric: Present: A&O x's 3, appropriate affect - Labs CBC & Chem 7: 01/12/20 06:32 01/12/20 06:32 Labs: Abnormal Lab Results - Last 24 Hours (Table) 01/11/20 01/11/20 01/11/20 Range/Units 17:59 17:59 17:59 WBC (3.8-10.6) k/uL RBC (4.30-5.90) m/uL Hgb (13.0-17.5) gm/dL Hct (39.0-53.0) % RDW (11.5-15.5) % Plt Count (150-450) k/uL Retic Count 2.1 H (0.5-2.0) % APTT (22.0-30.0) sec Sodium (137-145) mmol/L Chloride (98-107) mmol/L Glucose (74-99) mg/dL Calcium (8.4-10.2) mg/dL AST (17-59) U/L Alkaline Phosphatase (38-126) U/L Lactate Dehydrogenase 5274 H (313-618) U/L IgG 350.0 L (700.0-1600.0) mg/dL IgA 1980.0 H (60.0-350.0) mg/dL IgM <16.9 L (40.0-280.0) mg/dL Free [place] LC, Quant 0.21 L (0.33-1.94) mg/dL Free Lambda LC, Quant 163.00 H (0.57-2.63) mg/dL 01/11/20 01/12/20 01/12/20 Range/Units 17:59 06:32 06:32 WBC 3.7 L (3.8-10.6) k/uL RBC 2.99 L (4.30-5.90) m/uL Hgb 9.4 L (13.0-17.5) gm/dL Hct 29.0 L (39.0-53.0) % RDW 18.7 H (11.5-15.5) % Plt Count 134 L (150-450) k/uL Retic Count (0.5-2.0) % APTT 21.4 L (22.0-30.0) sec Sodium 134 L (137-145) mmol/L Chloride 95 L (98-107) mmol/L Glucose 105 H (74-99) mg/dL Calcium 8.2 L (8.4-10.2) mg/dL AST 69 H (17-59) U/L Alkaline Phosphatase 156 H (38-126) U/L Lactate Dehydrogenase (313-618) U/L IgG (700.0-1600.0) mg/dL IgA (60.0-350.0) mg/dL IgM (40.0-280.0) mg/dL Free [place] LC, Quant (0.33-1.94) mg/dL Free Lambda LC, Quant (0.57-2.63) mg/dL Assessment and Plan (1) Peripheral edema Narrative/Plan: at presentation that had been concern for DVT/PE, with CT and upper is negative. CT of the abdomen and pelvis was ordered to rule out intra-abdominal thrombosis. The results showed large retroperitoneal mass that is new, which is likely causing compression and obstruction to venous drainage. The patient also has paraspinal masses more caudally in the chest cavity, but these are unlikely to be part of his symptom problem. - Radiation oncology will be consulted to evaluate for palliative radiation to the retroperitoneal mass. Continue diuresis though the patient is unlikely to have sustained benefit unless the above-mentioned obstruction is relieved. Current Visit: Yes Status: Acute Code(s): R60.9 - EDEMA, UNSPECIFIED SNOMED Code(s): 726698802 (2) Multiple myeloma Narrative/Plan: the patient has just resumed his regimen recently after surgery. However above- mentioned findings on computed tomography scan raises the possibility of marked progression. I will discuss with Dr. Blackburn regarding these findings. Depending on his evaluation, change of regimen may need to be considered, if appropriate. Continue to monitor counts while inpatient. So far there are in a safe range, with no intervention required Current Visit: Yes Status: Acute Code(s): C90.00 - MULTIPLE MYELOMA NOT HAVING ACHIEVED REMISSION SNOMED Code(s): 041475790 Plan: The patient continues to have persistent edema, he states that his symptoms are controlled on current diuretics and he is able to function reasonably well in terms of his ADLs. Therefore from our standpoint he is okay for discharge whenever felt to be appropriate for the same by the admitting service. Above- mentioned follow-up can be done as an outpatient
[2020-01-12 13:09] LABS: % Iron Saturation 21.58 (15.00-50.00)
[2020-01-12 13:17] LABS: Folate, Serum 2.4 ng/mL
[2020-01-12 13:21] LABS: Ferritin 851.9 ng/mL (22.0-322.0)
--- NOTE | 2020-01-12 15:12 | P.PN ---
Subjective Progress Note Date: 01/12/20 Principal diagnosis: lower extremity edema/myeloma The patient is a 69-year-old male with a history of multiple myeloma having initiated RVD chemotherapy in August 2019. He recently had a break in his systemic therapy secondary to a fracture of the right femoral neck, requiring a right hemiarthroplasty on December 26. He just restarted systemic therapy this past week, but was now admitted for increased lower extremity edema, right greater than left. After his admission, the patient's workup was negative for lower extremity DVT. CT scan of the abdomen and pelvis however revealed an 8 x 5 cm retroperitoneal mass involving the upper sacrum with compression of the iliac vessels. This is clearly significantly progressed from his previous scans. There also appears to be progression of a right lateral chest wall mass measuring 8 x 4 cm, and a left posterior chest wall mass measuring 6 cm.The patient does not appear symptomatic from these lesions however. He reports that he is able to ambulate despite significant swelling in the right lower extremity. He has had significant improvement in his hip pain after his surgery. He reports that at this time his current pain level is 3-4 out of 10. He has been hospitalized and initiated on Lasix, but he is unsure how much benefit he has noticed from this. Objective - Vital Signs Vital signs: Vital Signs Temp 97.6 F 01/12/20 14:58 Pulse 92 01/12/20 14:58 Resp 16 01/12/20 14:58 BP 114/71 01/12/20 14:58 Pulse Ox 95 01/12/20 14:58 Intake & Output 01/11/20 01/12/20 01/12/20 18:59 06:59 18:59 Intake Total 250 900 Output Total 1000 1100 525 Balance -750 -200 -525 Intake: Oral 250 900 Output: Urine 1000 1100 525 Other: # Voids 1 1 1 - Exam TELEHEALTH CALL No physical exam done. Patient sounded in no acute distress and was alert and oriented x 3 with normal mood. - Labs CBC & Chem 7: 01/12/20 06:32 01/12/20 06:32 Labs: Abnormal Lab Results - Last 24 Hours (Table) 01/11/20 01/11/20 01/11/20 Range/Units 17:59 17:59 17:59 WBC (3.8-10.6) k/uL RBC (4.30-5.90) m/uL Hgb (13.0-17.5) gm/dL Hct (39.0-53.0) % RDW (11.5-15.5) % Plt Count (150-450) k/uL Retic Count 2.1 H (0.5-2.0) % APTT (22.0-30.0) sec Sodium (137-145) mmol/L Chloride (98-107) mmol/L Glucose (74-99) mg/dL Calcium (8.4-10.2) mg/dL Iron 52 L (65-175) ug/dL Ferritin 851.9 H (22.0-322.0) ng/mL AST (17-59) U/L Alkaline Phosphatase (38-126) U/L Lactate Dehydrogenase 5274 H (313-618) U/L IgG 350.0 L (700.0-1600.0) mg/dL IgA 1980.0 H (60.0-350.0) mg/dL IgM <16.9 L (40.0-280.0) mg/dL Free [place] LC, Quant 0.21 L (0.33-1.94) mg/dL Free Lambda LC, Quant 163.00 H (0.57-2.63) mg/dL 01/11/20 01/12/20 01/12/20 Range/Units 17:59 06:32 06:32 WBC 3.7 L (3.8-10.6) k/uL RBC 2.99 L (4.30-5.90) m/uL Hgb 9.4 L (13.0-17.5) gm/dL Hct 29.0 L (39.0-53.0) % RDW 18.7 H (11.5-15.5) % Plt Count 134 L (150-450) k/uL Retic Count (0.5-2.0) % APTT 21.4 L (22.0-30.0) sec Sodium 134 L (137-145) mmol/L Chloride 95 L (98-107) mmol/L Glucose 105 H (74-99) mg/dL Calcium 8.2 L (8.4-10.2) mg/dL Iron (65-175) ug/dL Ferritin (22.0-322.0) ng/mL AST 69 H (17-59) U/L Alkaline Phosphatase 156 H (38-126) U/L Lactate Dehydrogenase (313-618) U/L IgG (700.0-1600.0) mg/dL IgA (60.0-350.0) mg/dL IgM (40.0-280.0) mg/dL Free [place] LC, Quant (0.33-1.94) mg/dL Free Lambda LC, Quant (0.57-2.63) mg/dL Assessment and Plan Plan: The patient is a 69-year-old male with a history of multiple myeloma having initiated RVD chemotherapy in August 2019. He recently had a break in his systemic therapy secondary to a fracture of the right femoral neck, requiring a right hemiarthroplasty on December 26. He just restarted systemic therapy this past week, but was now admitted for increased lower extremity edema, right greater than left. 1. RLE edema: Based on his imaging, I have high suspicion that the right lower extremity edema is secondary to the enlarging retroperitoneal mass in the upper sacrum on the right. This appears to be compressing the iliac vessels likely resulting in the swelling. I discussed with the patient that I felt a palliative course of radiotherapy would be beneficial to this area. I explained to the patient that if he were still hospitalized on Tuesday, I would bring him down for CT simulation in the morning. I discussed that if he were discharged home, that we have an opening in the clinic at 1 PM and that his radiotherapy could be arranged as an outpatient at that time. 2. Myeloma: the patient appears to have progressive lesions, specifically within the right sacrum, as well as the right lower lateral chest wall in the left posterior chest wall. He did have a one-month break from his chemotherapy, however it is concerning that these lesions have progressed in the short interval. This initial visit was made via telemedicine. It was felt the patient may be discharged home this afternoon. It is now my understanding that he may be hospitalized for another couple days. I discussed with the patient that even if he were to be discharged today or tomorrow, we would hold a spot for him to follow-up on January 13 at 1 PM at the first floor of the [facility] (the patient has been seen in consultation there before). We would look to urgently start radiotherapy for him following his planning session. Time with Patient: Less than 30
[2020-01-12] MEDS: oxyCODONE-APAP 10-325MG 1 EACH TAB PO SCH ×2 (15:33→21:00)
--- NOTE | 2020-01-12 15:52 | P.PN ---
Subjective Progress Note Date: 01/12/20 69-year-old male one of my office patient with past medical history of hyperlipidemia, hypertension, BPH and multiple myeloma who had right total knee arthroplasty few month ago at [facility] with a complication specially with been thrombocytopenic and dyes peripheral smear was of normal pat ient was diagnosed with multiple myeloma start to see oncologist at [facility] and furthermore transferred to Dr. Garcia service Patient presented to the office today with concern of severe anasarca and swelling in both legs worsening in the left on the right side significant pain and discomfort with irritation when try to ambulate and walk. Also patient was having significant shortness of breath. Patient was seen in the office with a current anasarca and worsening symptoms high suspicion for DVT patient ended up going to the emergency department was seen and evaluated with his current finding d-dimer was quite bit elevated CT of the chest came back with no sign of pulmonary embolism but bilateral pleural effusion and mild atelectasis. Patient venous Doppler was negative. Was started on IV diuretics with his current anasarca and symptoms with the bilateral pleural effusion worsening shortness of breath decided to admit patient to the hospital will be on IV diuretics will be seen oncology and cardiology to stabilize his symptom and decrease significant anasarca on edema. 01/10: Patient has had some improvement of his breathing. He denies any chest pain. He is unable to sleep in the hospital bed. We will add in Aldactone and GRAHAM hose. PT evaluation will be requested as well as consult with Dr. Garcia. Repeat blood work reveals sodium 136, potassium 3.8, chloride 96, CO2 32, BUN 19 creatinine 2.84. Blood sugar 122. ProBNP 276. WBC 3.0, hemoglobin 9.1, platelet count 129. Patient has been afebrile, heart rate 95, blood pressure 104/53, pulse ox 96% on room air. Anticipate probably discharge on the weekend. 01/11: Patient is seen for follow-up, patient's wanting to go home, however his symptoms to be seen by radiation oncology, requiring palliative treatment to the retroperitoneal mass that was seen, as the patient's uncomfortable from a supine and arm sitting position, patient once his Percocet to be scheduled, 3 times a day with when necessary dosing at 6 PM, patient also has significant edema, no better with the Lasix 40 mg IV every 12 hours, severe multiple myeloma masses were seen, oncology has requested radiation oncology to evaluate him for palliative treatment. Masses aren't comfortable, there is a large 8 x 5 cm retroperitoneal mass involving the upper sacrum with compression to iliac vessels, significantly has progressed on previous scans, there is also progression of the right cell wall mass 8 x 4 cm, in the left posterior or chest wall mass 6 cm, no current symptoms in the chest wall masses. Patient has difficulty in ambulating however he can ambulate with some assistance, severe swelling in the lower extremity, patient has no lightheadedness or dizziness, we'll going to increase Lasix to 40 mg daily 8 hours, and compression sports socks or Michi wrap, patient is willing to stay 1 more day, until radiation oncology is finalized and until edema titration would be improved. Patient also wants to be evaluated for post void residual, patient's of Flomax, request postvoid residual while here Review of Systems CONSTITUTIONAL: Well-developed no acute respiratory distress. EYES: No icterus sclerae, no conjunctivitis. EARS, NOSE, MOUTH, THROAT, and FACE: No sore throat, lymphadenopathy, carotid bruits or deformity. RESPIRATORY: Positive shortness of breath no cough or wheezes. CARDIOVASCULAR: No CP, Palpitation, PND, Orthopnea, or angina. GASTROINTESTINAL: Slight abdominal pain with nausea without vomiting no diarrhea.. GENITOURINARY: Negative for Hematuria or UTI, no kidney stones. INTEGUMENT/BREAST: Negative for any muscular injury with mild osteoarthritis.. HEMATOLOGIC/LYMPHATIC: Positive for anemia thrombocytopenia and multiple myeloma. MUSCULOSKELTAL: Negative for Myalgia or arthralgia. NEURLOGICAL: No LOC, Sz or syncope, blurred vision dizziness or abnormality.. BEHAVIORAL/PSYCH: Negative. ENDOCRINE: Negative. Objective - Vital Signs Vital signs: Vital Signs Temp 97.6 F 01/12/20 14:58 Pulse 92 01/12/20 14:58 Resp 16 01/12/20 14:58 BP 114/71 01/12/20 14:58 Pulse Ox 95 01/12/20 14:58 Intake & Output 01/11/20 01/12/20 01/12/20 18:59 06:59 18:59 Intake Total 250 900 Output Total 1000 1100 525 Balance -750 -200 -525 Intake: Oral 250 900 Output: Urine 1000 1100 525 Other: # Voids 1 1 1 - Constitutional General appearance: Present: cooperative, no acute distress, obese - EENT Eyes: Present: anicteric sclerae, EOMI, PERRLA, dentition normal, normal appearance ENT: Present: NA/AT, normal oropharynx - Neck Neck: Present: normal ROM - Respiratory Respiratory: bilateral: CTA, negative: diminished, dullness - Cardiovascular Rhythm: regular Heart sounds: normal: S1, S2 Abnormal Heart Sounds: Present: systolic murmur - Peripheral edema leg Peripheral Edema: bilateral: 4+, Pitting - Gastrointestinal General gastrointestinal: Present: normal bowel sounds, soft - Integumentary Integumentary: Present: decreased turgor, normal - Neurologic Neurologic: Present: CNII-XII intact - Musculoskeletal Musculoskeletal: Present: generalized weakness, strength equal bilaterally - Psychiatric Psychiatric: Present: A&O x's 3, appropriate affect, intact judgment & insight - Labs CBC & Chem 7: 01/12/20 06:32 01/12/20 06:32 Labs: Abnormal Lab Results - Last 24 Hours (Table) 01/11/20 01/11/20 01/11/20 Range/Units 17:59 17:59 17:59 WBC (3.8-10.6) k/uL RBC (4.30-5.90) m/uL Hgb (13.0-17.5) gm/dL Hct (39.0-53.0) % RDW (11.5-15.5) % Plt Count (150-450) k/uL Retic Count 2.1 H (0.5-2.0) % APTT (22.0-30.0) sec Sodium (137-145) mmol/L Chloride (98-107) mmol/L Glucose (74-99) mg/dL Calcium (8.4-10.2) mg/dL Iron 52 L (65-175) ug/dL Ferritin 851.9 H (22.0-322.0) ng/mL AST (17-59) U/L Alkaline Phosphatase (38-126) U/L Lactate Dehydrogenase 5274 H (313-618) U/L IgG 350.0 L (700.0-1600.0) mg/dL IgA 1980.0 H (60.0-350.0) mg/dL IgM <16.9 L (40.0-280.0) mg/dL Free [place] LC, Quant 0.21 L (0.33-1.94) mg/dL Free Lambda LC, Quant 163.00 H (0.57-2.63) mg/dL 01/11/20 01/12/20 01/12/20 Range/Units 17:59 06:32 06:32 WBC 3.7 L (3.8-10.6) k/uL RBC 2.99 L (4.30-5.90) m/uL Hgb 9.4 L (13.0-17.5) gm/dL Hct 29.0 L (39.0-53.0) % RDW 18.7 H (11.5-15.5) % Plt Count 134 L (150-450) k/uL Retic Count (0.5-2.0) % APTT 21.4 L (22.0-30.0) sec Sodium 134 L (137-145) mmol/L Chloride 95 L (98-107) mmol/L Glucose 105 H (74-99) mg/dL Calcium 8.2 L (8.4-10.2) mg/dL Iron (65-175) ug/dL Ferritin (22.0-322.0) ng/mL AST 69 H (17-59) U/L Alkaline Phosphatase 156 H (38-126) U/L Lactate Dehydrogenase (313-618) U/L IgG (700.0-1600.0) mg/dL IgA (60.0-350.0) mg/dL IgM (40.0-280.0) mg/dL Free [place] LC, Quant (0.33-1.94) mg/dL Free Lambda LC, Quant (0.57-2.63) mg/dL Assessment and Plan Plan: Assessment and Plan 1 severe anasarca and edema with compression to sacroiliac vessels from a large myeloma mass, requiring interventional treatment with regurgitation, for palliative purposes as well.. Continue but increase Lasix 40 mg IV every 8 hours, add Aldactone 25 mg twice daily. Monitor I&O and daily weights. Graham hose bilateral. Compression sport socks, avoid recliner use for sleeping purposes, leg elevation 2 severe edema, secondary to suspected massive proteinuria from multiple myeloma: See #1. 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 Consult with Dr. Garcia added. 4 hyperlipidemia: Remain on atorvastatin. 5 chronic pain syndrome: Patient has been on morphine sulfate 50 mg every 12 hours along with oxycodone 10/325 mg every 4 hours as needed. 6 severe leukopenia and anemia with thrombocytopenia: Most likely from chemotherapy recently patient seen oncology on regular basis. 7 chronic kidney disease: Stage II, creatinine still marginal with elevated BUN. 8 DVT prophylaxis: Patient will have knee-high GRAHAM hose no anticoagulation subcutaneous. 9 chronic pain syndrome: Has been on morphine and Percocet 10 CODE STATUS: Full code. 11. COVID-19 infection not present. Discharge plan: home with [facility] Tuesday.
[2020-01-12] MEDS: FUROSEMIDE 10 MG/ML 10 ML VIAL IV SCH ×2 (16:18→23:29)
[2020-01-12] MEDS ORDERED: oxyCODONE-APAP 10-325MG 1 EACH TAB PO PRN (18:00)
[2020-01-12] MEDS: ATORVASTATIN 10 MG TAB PO SCH (21:01)
[2020-01-13] MEDS: ZOLPIDEM 10 MG TAB PO PRN (00:55)
[2020-01-13 07:25] LABS: African American GFR (CKD) >90 (>60 ml/min/1.73 sqM); Anion Gap 8 mmol/L; Blood Urea Nitrogen 19 mg/dL (9-20); Calcium 7.9 mg/dL (8.4-10.2); Carbon Dioxide 32 mmol/L (22-30); Chloride 93 mmol/L (98-107); Glucose 112 mg/dL (74-99); Non-African American GFR(CKD) >90 (>60 ml/min/1.73 sqM); Potassium 3.8 mmol/L (3.5-5.1); Sodium 133 mmol/L (137-145)
[2020-01-13 07:27] VITALS: BP 109/70; PULSE 89; RESP 16; TEMP 98.1
[2020-01-13] MEDS: NON FORMULARY DRUG (Lenalidomide [Revlimid] 25 MG) PO SCH (07:28)
[2020-01-13] MEDS: oxyCODONE-APAP 10-325MG 1 EACH TAB PO SCH (07:34)
[2020-01-13] MEDS: FUROSEMIDE 10 MG/ML 10 ML VIAL IV SCH (07:35)
[2020-01-13] MEDS: SPIRONOLACTONE 25 MG TAB PO SCH (07:35)
[2020-01-13] MEDS: CALCIUM CARBONATE 500 MG CHEWABLE PO SCH ×2 (07:35→07:38)
[2020-01-13] MEDS: ASPIRIN 81 MG PO SCH (07:35)
[2020-01-13] MEDS: DOCUSATE 100 MG CAP PO SCH (07:35)
[2020-01-13 07:59] LABS: Anisocytosis Slight; Basophils % (A) 1 %; Eosinophils % (A) 1 %; HCT 27.4 % (39.0-53.0); HGB 9.1 gm/dL (13.0-17.5); Hypochromasia Slight; Lymphocytes # (A) 1.5 k/uL (1.0-4.8); Lymphocytes % (A) 43 %; MCH 32.7 pg (25.0-35.0); MCHC 33.1 g/dL (31.0-37.0); MCV 98.6 fL (80.0-100.0); Macrocytosis Slight; Mean Platelet Volume 8.4; Monocytes # (A) 0.2 k/uL (0-1.0); Monocytes % (A) 6 %; Neutrophils # (A) 1.6 k/uL (1.3-7.7); Neutrophils % (A) 46 %; Platelet Count 124 k/uL (150-450); RBC 2.78 m/uL (4.30-5.90); RDW 18.8 % (11.5-15.5); WBC 3.4 k/uL (3.8-10.6)
[2020-01-13] MEDS: MORPHINE SULFATE ER 30 MG TABLET PO SCH (09:26)
[2020-01-14 15:41] LABS: Albumin 2.95 g/dL (3.80-4.90)
[2020-01-15] MEDS ORDERED: DEXAMETHASONE 4 MG TAB PO SCH (09:00)
== END 2020-01-13 13:26 | disposition home or self-care (01) | DRG 841 ==
LOC: EC 15:50 → 5NMEDONC 19:07 → 4SSUR 21:47
PROVIDERS: ADMIT Internal Medicine Geriatric Medicine; ATTEND Internal Medicine Geriatric Medicine
DX: C90.00 Multiple myeloma not having achieved remission (principal); J90 Pleural effusion, not elsewhere classified; J98.11 Atelectasis; M84.451A Pathological fracture, right femur, initial encounter for fracture; M84.48XA Pathological fracture, other site, initial encounter for fracture; D70.1 Agranulocytosis secondary to cancer chemotherapy; R62.7 Adult failure to thrive; D69.59 Other secondary thrombocytopenia; E78.5 Hyperlipidemia, unspecified; G89.4 Chronic pain syndrome; I12.9 Hypertensive chronic kidney disease with stage 1 through stage 4 chronic kidney disease, or unspecified chronic kidney disease; N18.2 Chronic kidney disease, stage 2 (mild); N40.0 Benign prostatic hyperplasia without lower urinary tract symptoms; R26.2 Difficulty in walking, not elsewhere classified; Z11.59 Encounter for screening for other viral diseases; G89.3 Neoplasm related pain (acute) (chronic); R60.1 Generalized edema; T45.1X5A Adverse effect of antineoplastic and immunosuppressive drugs, initial encounter; D64.81 Anemia due to antineoplastic chemotherapy; Z79.82 Long term (current) use of aspirin; Z79.899 Other long term (current) drug therapy; Z96.641 Presence of right artificial hip joint; Z96.651 Presence of right artificial knee joint; Z80.7 Family history of other malignant neoplasms of lymphoid, hematopoietic and related tissues; Z80.8 Family history of malignant neoplasm of other organs or systems
CPT/HCPCS: 36415; 71046; 71275; 74177; 80048; 80053; 82550; 82607; 82728; 82746; 82784; 83540; 83550; 83615; 83735; 83880; 83883; 84165; 84484; 84550; 85025; 85045; 85379; 85610; 85730; 96374; 99285

== ENCOUNTER 2020-01-23 03:39 | Inpatient (IN) | payer MEDICARE ==
--- NOTE | 2020-01-23 04:06 | ED ---
Fall HPI - General Chief Complaint: Fall Stated Complaint: Fall Time Seen by Provider: 01/23/20 03:54 Source: patient, family Mode of arrival: ambulatory - History of Present Illness Initial Comments: Manny is a 69-year-old male with extensive past medical history most significant for multiple myeloma resulting in need for a hip replacement which was completed at [facility] in [place] 3 weeks ago. Patient is brought to the ER today by his for evaluation after a fall. The patient sleeps in a recliner, she heard him fall and went to check on him found him on the ground. He's not certain how he fell. He did have an abrasion to the left side of his forehead. Patient denies any injuries or pain. He has been able to stand since the fall. - Related Data Home Medications Medication Instructions Recorded Confirmed Aspirin EC [Ecotrin Low Dose] 162 mg PO DAILY 08/28/19 01/10/20 Atorvastatin Calcium [Lipitor] 10 mg PO HS 08/28/19 01/10/20 Bortezomib 1 dose IV MOTH 08/28/19 01/10/20 Lenalidomide [Revlimid] 25 mg PO DIRECTED 08/28/19 01/10/20 Acetaminophen [Tylenol Extra 1,000 mg PO Q6H PRN 09/13/19 01/10/20 Strength] Calcium Carbonate 500 mg PO BID 01/10/20 01/10/20 Docusate Sodium [Dok] 100 mg PO DAILY 01/10/20 01/10/20 Morphine Sulfate ER [Ms Contin] 30 mg PO Q12H 01/10/20 01/10/20 Zolpidem Tartrate [Ambien] 10 mg PO HS PRN 01/10/20 01/10/20 oxyCODONE-APAP 10-325MG [Percocet 1 tab PO Q6H PRN 01/10/20 01/10/20 10-325 mg] Previous Rx's Medication Instructions Recorded Furosemide [Lasix] 40 mg PO BID #60 tablet 01/13/20 Spironolactone [Aldactone] 25 mg PO BID #60 tab 01/13/20 Allergies Allergy/AdvReac Type Severity Reaction Status Date / Time fentanyl AdvReac Nausea & Verified 01/23/20 03:50 Vomiting Review of Systems ROS Statement: Those systems with pertinent positive or pertinent negative responses have been documented in the HPI. ROS Other: All systems not noted in ROS Statement are negative. Past Medical History Past Medical History: Hyperlipidemia Additional Past Medical History / Comment(s): multiple myeloma diagnosed 06/2019. History of Any Multi-Drug Resistant Organisms: None Reported Past Surgical History: Orthopedic Surgery Additional Past Surgical History / Comment(s): Right total knee arthroplasty with previous arthroscopically on bilateral knees, 2 arthroscopics on shoulders, left elbow, EGD, rt hip replacement Past Anesthesia/Blood Transfusion Reactions: No Reported Reaction Additional Past Anesthesia/Blood Transfusion Reaction / Comment(s): Pt has received platelets in the past without reaction. Past Psychological History: No Psychological Hx Reported Smoking Status: Never smoker Past Alcohol Use History: Rare Past Drug Use History: None Reported - Past Family History Father Additional Family Medical History / Comment(s): Father is alive at age 93 yrs old with no major medical problems. He has had a total hip replacement. Mother Family Medical History: Cancer Additional Family Medical History / Comment(s): Mother at age 69 from Multiple myeloma/bone cancer. Brother(s) Additional Family Medical History / Comment(s): Patient has 1 brother that is alive at age 72 with no major medical problems. Patient does not have any sisters. Patient has 2 sons with no major medical problems. General Exam - General Exam Comments Initial Comments: Physical Exam GENERAL: Patient is well-developed and well-nourished. Patient is nontoxic and well-hydrated and is in no distress. HENT: Normocephalic Abrasion over left forehead EYES: PERRL, EOMI PULMONARY: Unlabored respirations CARDIOVASCULAR: RRR Warm and well perfused extremities ABDOMEN: Non-distended SKIN: Abrasion over left forehead Healing surgical incision Pale : Deferred NEUROLOGIC: Alert and oriented Normal speech Normal gait MUSCULOSKELETAL: Decreased ROM right leg secondary to recent hip surgery Edema bilateral lower extremities PSYCHIATRIC: No SI/HI Limitations: no limitations Course Vital Signs 01/23/20 01/23/20 01/23/20 03:47 05:44 06:50 Temperature 98.2 F Pulse Rate 102 H 88 91 Respiratory 18 18 18 Rate Blood Pressure 101/58 117/68 105/66 O2 Sat by Pulse 95 95 95 Oximetry Medical Decision Making - Medical Decision Making Patient received evaluated, history was obtained from patient and Patient apparently rolled out of his recliner onto the ground hitting the left side of his forehead he's been ambulatory since that time the was concerned about striking his head Was obtained and resulted with no acute findings Results were discussed with the patient and , patient states she like to go home however the states now the patient hasn't been eating or drinking well he's becoming progressively weaker and weaker and she doesn't feel safe taking her home Labs were obtained, patient has pancytopenia which is worse than his baseline, BUN is elevated creatinines normal, transaminitis with an elevated bilirubin Computed tomography scan of the abdomen will be obtained Patient care was discussed with the patient's primary care provider who is very familiar with the patient, at this time agrees with the the patient is not stable for discharge home. Recommends admission to the hospital for anasarca, pancytopenia associated with chemotherapy, generalized weakness, fall at home, dehydration, decreased by mouth intake. - Lab Data Result diagrams: 01/23/20 05:30 01/23/20 05:30 Lab Results 01/23/20 01/23/20 01/23/20 Range/Units 05:30 05:30 05:30 WBC 1.9 L (3.8-10.6) k/uL RBC 2.66 L (4.30-5.90) m/uL Hgb 8.5 L (13.0-17.5) gm/dL Hct 26.6 L (39.0-53.0) % MCV 100.2 H (80.0-100.0) fL MCH 32.1 (25.0-35.0) pg MCHC 32.1 (31.0-37.0) g/dL RDW 19.9 H (11.5-15.5) % Plt Count 63 L (150-450) k/uL Neutrophils % (Manual) 42 % Band Neutrophils % 10 % Lymphocytes % (Manual) 43 % Monocytes % (Manual) 6 % Neutrophils # (Manual) 0.90 L (1.3-7.7) k/uL Lymphocytes # (Manual) 0.82 L (1.0-4.8) k/uL Monocytes # (Manual) 0.11 (0-1.0) k/uL Nucleated RBCs 5 H (0-0) /100 WBC Manual Slide Review Performed Polychromasia Present Hypochromasia Slight Poikilocytosis (manual Present Anisocytosis Slight Macrocytosis Moderate Sodium 135 L (137-145) mmol/L Potassium 4.0 (3.5-5.1) mmol/L Chloride 97 L (98-107) mmol/L Carbon Dioxide 27 (22-30) mmol/L Anion Gap 11 mmol/L BUN 21 H (9-20) mg/dL Creatinine 0.85 (0.66-1.25) mg/dL Est GFR (CKD-EPI)AfAm >90 (>60 ml/min/1.73 sqM) Est GFR (CKD-EPI)NonAf >90 (>60 ml/min/1.73 sqM) Glucose 115 H (74-99) mg/dL Calcium 8.0 L (8.4-10.2) mg/dL Total Bilirubin 2.3 H (0.2-1.3) mg/dL AST 95 H (17-59) U/L ALT 65 H (4-49) U/L Alkaline Phosphatase 279 H (38-126) U/L Total Protein 7.1 (6.3-8.2) g/dL Albumin 3.3 L (3.5-5.0) g/dL Urine Color Yellow Urine Appearance Cloudy (Clear) Urine pH 5.5 (5.0-8.0) Ur Specific Miracle 1.021 (1.001-1.035) Urine Protein 1+ H (Negative) Urine Glucose (UA) Negative (Negative) Urine Ketones Negative (Negative) Urine Blood Moderate H (Negative) Urine Nitrite Negative (Negative) Urine Bilirubin 1+ H (Negative) Urine Urobilinogen 6.0 (<2.0) mg/dL Ur Leukocyte Esterase Negative (Negative) Urine RBC 5 (0-5) /hpf Urine WBC 3 (0-5) /hpf Ur Squamous Epith Cells <1 (0-4) /hpf Urine Bacteria Rare H (None) /hpf Hyaline Casts 55 H (0-2) /lpf Urine Mucus Occasional H (None) /hpf Disposition Clinical Impression: Pancytopenia, Anasarca, Generalized weakness, Fall, Multiple myeloma, Failure to thrive in adult, Transaminitis Disposition: [facility] Condition: Serious Is patient prescribed a controlled substance at d/c from ED?: No Referrals: Boom Galvan MD [Primary Care Provider] - 1-2 days
--- NOTE | 2020-01-23 04:34 | CT ---
EXAMINATION TYPE: CT brain jen alegria con DATE OF EXAM: 01/23/2020 COMPARISON: None HISTORY: Fall Headache. Neck pain CT DLP: 1505.40 mGycm Automated exposure control for dose reduction was used. There is mild cerebral cortical atrophy. There is no mass effect nor midline shift. There is no sign of intracranial hemorrhage. The calvarium is intact. The skull base is intact. Cervical vertebra have normal alignment. There is minor cervical facet arthropathy. There is mild mul tilevel cervical disc space narrowing. There is no evidence of a fracture. There is normal aeration o f the temporal bones. Prevertebral soft tissues appear normal. IMPRESSION: Mild cerebral atrophy. No acute intracranial abnormality. Mild cervical multilevel spondylotic changes. No fracture.
--- NOTE | 2020-01-23 04:36 | XR ---
EXAMINATION TYPE: XR Hip Limited RT DATE OF EXAM: 01/23/2020 COMPARISON: NONE HISTORY: Fall. 3 weeks postop. TECHNIQUE: Single view FINDINGS: There is a right hip prosthesis. The components are in anatomic position. I see no fracture . Acetabulum appears intact. IMPRESSION: No complicating process seen. No fracture seen.
[2020-01-23] MEDS: SODIUM CHLORIDE 0.9% 1,000 ML IV SCH ×3 (05:42→21:05)
[2020-01-23 06:19] LABS: Appearance,Urine Cloudy (Clear); Bacteria,Urine Rare /hpf; Bilirubin,Urine 1+ (Negative); Blood,Urine Moderate (Negative); Color,Urine Yellow; Glucose,Urine (UA) Negative (Negative); Hyaline Casts,Urine 55 /lpf (0-2); Ketones,Urine Negative (Negative); Leukocyte Esterase,Urine Negative (Negative); Mucus,Urine Occasional /hpf; Nitrite,Urine Negative (Negative); PH, Urine 5.5 (5.0-8.0); Protein,Urine 1+ (Negative); RBC,Urine 5 /hpf (0-5); Specific Gravity,Urine 1.021 (1.001-1.035); Squamous Epithelial Cell,Urine <1 /hpf (0-4); WBC,Urine 3 /hpf (0-5)
[2020-01-23 06:20] LABS: ALT 65 U/L (4-49); AST 95 U/L (17-59); African American GFR (CKD) >90 (>60 ml/min/1.73 sqM); Albumin 3.3 g/dL (3.5-5.0); Alkaline Phosphatase 279 U/L (38-126); Anion Gap 11 mmol/L; Blood Urea Nitrogen 21 mg/dL (9-20); Carbon Dioxide 27 mmol/L (22-30); Chloride 97 mmol/L (98-107); Glucose 115 mg/dL (74-99); Non-African American GFR(CKD) >90 (>60 ml/min/1.73 sqM); Sodium 135 mmol/L (137-145); Total Bilirubin 2.3 mg/dL (0.2-1.3); Total Protein 7.1 g/dL (6.3-8.2)
[2020-01-23 06:26] LABS: Anisocytosis Slight; HCT 26.6 % (39.0-53.0); HGB 8.5 gm/dL (13.0-17.5); Hypochromasia Slight; MCH 32.1 pg (25.0-35.0); MCHC 32.1 g/dL (31.0-37.0); MCV 100.2 fL (80.0-100.0); Macrocytosis Moderate; Mean Platelet Volume 9.7; RBC 2.66 m/uL (4.30-5.90); RDW 19.9 % (11.5-15.5)
[2020-01-23] MEDS ORDERED: SODIUM CHLORIDE 0.9% 1,000 ML IV ONE ×2 (06:30→07:00)
[2020-01-23] MEDS ORDERED: MORPHINE SULFATE 5 MG/ML SYRINGE IVP STA (06:30)
[2020-01-23] MEDS ORDERED: MORPHINE SULFATE 4 MG/ML SYRINGE IVP STA (06:47)
[2020-01-23 07:20] LABS: Band Neutrophils % 10 %; Lymphocytes # (M) 0.82 k/uL (1.0-4.8); Monocytes # (M) 0.11 k/uL (0-1.0); Neutrophils % (M) 42 %; Nucleated Red Blood Cells 5 /100 WBC (0-0); Polychromasia Present; Total Cells Counted 200; WBC 1.9 k/uL (3.8-10.6)
[2020-01-23 07:22] LABS: Platelet Count 63 k/uL (150-450); Poikilocytosis (M) Present
[2020-01-23] MEDS ORDERED: NALOXONE 0.4 MG/ML 1 ML VIAL IV PRN ×2 (07:58→17:52)
[2020-01-23] MEDS ORDERED: MORPHINE SULFATE 4 MG/ML SYRINGE IV PRN (07:58)
--- NOTE | 2020-01-23 08:46 | CT ---
EXAMINATION TYPE: CT abdomen pelvis w con DATE OF EXAM: 01/23/2020 COMPARISON: 01/11/2020 INDICATION: Abdominal pain DLP: 1775.9 mGycm, Automated exposure control for dose reduction was used. CONTRAST: 100 mL of Isovue 300. Study performed without Oral Contrast TECHNIQUE: Axial images were obtained from above the diaphragm to the pubic rami in the axial plane a t 5 mm thick sections. Reconstructed images are reviewed on the computer in the coronal plane. FINDINGS: Limited CT sections are obtained the lung bases. There is a minimal left and small right pleural eff usion. Some adjacent compressive atelectasis is present.. At the 12th rib level on the left there is a soft tissue density which extends anterior and posterior to the rib. This was present previously and appears stable. Series [address] ABDOMEN: Liver: There is a 2.5 cm hypodensity within the anterior right lobe liver at the gallbladder bladder bed fossa. This is nonspecific. Mass may be present. On additional subtle hypodensities at the dome o f the right lobe liver measuring 1.5 cm. Some hypodensities in the posterior right lobe liver measuri ng 1.7 cm. These areas are persistent on postcontrast delayed images but remains very subtle. Conside r abdomen ultrasound to evaluate the liver. MRI with contrast could be performed for evaluation of th e liver. Spleen: Normal Pancreas: Normal Adrenal glands: The adrenal glands are normal. Gallbladder: Fluid surrounds the gallbladder. Correlate for cholecystitis. This could be further vamsi luated with ultrasound. Kidneys: No masses are evident. No hydronephrosis is present. No cysts are present. Delayed images were obtained through the kidneys, which remain unremarkable. Aorta: Vascular calcification is within the aorta. Inferior vena cava: Normal. CT PELVIS: Beam hardening artifact from right hip prosthesis limits portions of the lower pelvis. Loops of bowel within the abdomen and pelvis are normal. The studies performed without oral contr ast limiting bowel evaluation. Appendix: Not identified. No suspicious tubular structures or inflammatory changes are identified. Urinary bladder: Normal. Genitourinary structures: Prostate appears normal Osseous structures: Spondylolysis of L5 is evident. Degenerative disc changes are present within the lumbar spine. A posterior right hemipelvis soft tissue mass at the level of sacroiliac joint and the L5-S1 level is again evident. Vascular structures pass through this region appear anteriorly displaced. The right p soas muscle is laterally displaced. This currently is estimated to measures 7.7 x 7.4 cm. Previous me asurement in the similar location was 7.0 x 7.1 cm IMPRESSIONS: 1. Enlarging soft tissue mass posterior medial right hemipelvis. 2. Left posterior chest wall mass similar in appearance. 3. Minimal left and small stable right pleural effusions.
[2020-01-23] MEDS ORDERED: ACETAMINOPHEN TAB 500 MG TAB PO PRN ×2 (13:24→17:49)
[2020-01-23] MEDS ORDERED: oxyCODONE-APAP 10-325MG 1 EACH TAB PO PRN (13:24)
[2020-01-23] MEDS ORDERED: ZOLPIDEM 10 MG TAB PO PRN ×2 (13:24→17:53)
--- NOTE | 2020-01-23 14:12 | P.HPIM ---
History of Present Illness H&P Date: 01/23/20 This is a 69-year-old male patient of Dr. Dr. Galvan, Dr. Garcia and Dr. Vieyra with past medical history of hyperlipidemia, hypertension, BPH and multiple myeloma who had right total knee arthroplasty few month ago at [facility] with a complication specially with been thrombocytopenic and was diagnosed with multiple myeloma initially seen oncologist at [facility] in subsequent transferred to Dr. Garcia service. Patient had a recent hospitalization January 09 and was discharged home on January 12. He has been undergoing radiation therapy with Dr. Vieyra to the sacrum and sternum and he states he has 2 treatments left. He is also on chemotherapy but this recently changed according to the patient's . He also has a meeting scheduled with ASHLEY Marie with oncology regarding current treatment. verbalizes that she is not sure the chemotherapy is working and not sure if they want to continue. Patient does verbalize that he plans to complete his course of radiation therapy. is history that he had a fall at 2:30 this morning while at home. Edema is better and he has lost 20 pounds since the worst point but still continues to have lower extremity edema. Patient was complaining of increasing generalized weakness and debility. Patient came into [facility] emergency center for evaluation. Patient was afebrile, heart rate 102, blood pressure 101/58, pulse ox 95% on room air. WBC 1.9, hemoglobin 8.5, platelet count 63. Sodium 135, potassium 4.0, chloride 97, CO2 27, BUN 21 creatinine 0.85. Blood sugar 115. Urinalysis cloudy, blood moderate, leukoesterase and nitrate negative. Patient was started on IV fluids and given 1 dose of morphine, [facility]. Consults added for oncology and radiation oncology. Review of Systems Constitutional: No fever, no chills, no night sweats. No weight change. Reports generalized weakness, Reports fatigue, Reports lethargy. No daytime sleepiness. EENT: No headache. No blurred vision or double vision, no loss of vision. No loss of Hearing, no ringing in the ears, no dizziness. No nasal drainage or congestion. No epistaxis. No sore throat. Lungs: No shortness of breath, cough, no sputum production. No wheezing. Cardiovascular: No chest pain, no lower extremity edema. No palpitations. No paroxysmal nocturnal dyspnea. No orthopnea. No lightheadedness or dizziness. No syncopal episodes. Abdominal: No abdominal pain. No nausea, vomiting. No diarrhea. No constipation. No bloody or tarry stools. Reports loss of appetite. Genitourinary: No dysuria, increased frequency, urgency. No urinary retention. Musculoskeletal: No myalgias. Reports muscle weakness, Reports gait dysfunction, Reports frequent falls. Reports back pain. No neck pain. Integumentary: No wounds, no lesions. No rash or pruritus. No unusual bruising. Neurologic: No aphasia. No facial droop. No change in mentation. No head injury. No headache. No paralysis. No paresthesia. Psychiatric: No depression. No anxiety. No mood swings. Endocrine: No abnormal blood sugars. No weight change. No excessive sweating or thirst. No cold intolerance. Physical Examination Gen: This is a 69-year-old male. He is resting on the ER stretcher and appears to be comfortable and in no acute distress. HEENT: Head is atraumatic, normocephalic. Pupils equal, round. Sclerae is anicteric. Ecchymosis to the left Orbit. NECK: Supple. No JVD. No lymphadenopathy. No thyromegaly. LUNGS: Clear to auscultation. No wheezes or rhonchi. No intercostal retractions. HEART: Regular rate and rhythm. No murmur. ABDOMEN: Soft. Bowel sounds are present. No masses. No tenderness. EXTREMITIES: 1-dorsalis pedis +2 bilaterally. Oral mucous membranes are dry. 2+ pedal edema. No calf tenderness. NEUROLOGICAL: Patient is awake, alert and oriented x3. Cranial nerves 2 through 12 are grossly intact. Generalized weakness noted. Assessment and Plan 1. Severe worsening pancytopenia secondary to chemotherapy and multiple myeloma. 2. Fall secondary to dehydration. PT and OT consults. 3. Dehydration. Patient is status post 1 L of IV fluids. Continue IV fluids 75 mL per hour for 24 hours only. 4. Multiple myeloma. Consult with oncology and radiation oncology. 5. Chronic kidney disease stage II. 6. Lower extremity edema. Continue oral Lasix and Aldactone 25 mg twice daily. 7. Hyperlipidemia. Lipitor 10 mg daily. 8. Chronic pain syndrome. 9. GI prophylaxis. 10. DVT prophylaxis. 11. CODE STATUS: Full code 12. COVID-19 testing in process. Patient will be admitted to the hospital for a minimum of 2 night stay. Discharge plan: To be determined. PT and OT will be added. Impression and plan of care have been directed as dictated by the signing physician. Didi Edmond nurse practitioner acting as scribe for signing physician. Past Medical History Past Medical History: Hyperlipidemia Additional Past Medical History / Comment(s): multiple myeloma diagnosed 06/2019. History of Any Multi-Drug Resistant Organisms: None Reported Past Surgical History: Orthopedic Surgery Additional Past Surgical History / Comment(s): Right total knee arthroplasty with previous arthroscopically on bilateral knees, 2 arthroscopics on shoulders, left elbow, EGD, rt hip replacement Past Anesthesia/Blood Transfusion Reactions: No Reported Reaction Additional Past Anesthesia/Blood Transfusion Reaction / Comment(s): Pt has received platelets in the past without reaction. Past Psychological History: No Psychological Hx Reported Smoking Status: Never smoker Past Alcohol Use History: Rare Past Drug Use History: None Reported - Past Family History Father Additional Family Medical History / Comment(s): Father is alive at age 93 yrs ol d with no major medical problems. He has had a total hip replacement. Mother Family Medical History: Cancer Additional Family Medical History / Comment(s): Mother at age 69 from Multiple myeloma/bone cancer. Brother(s) Additional Family Medical History / Comment(s): Patient has 1 brother that is alive at age 72 with no major medical problems. Patient does not have any sisters. Patient has 2 sons with no major medical problems. Medications and Allergies Home Medications Medication Instructions Recorded Confirmed Type Aspirin EC [Ecotrin Low Dose] 162 mg PO DAILY 08/28/19 01/23/20 History Atorvastatin Calcium [Lipitor] 10 mg PO HS 08/28/19 01/23/20 History Bortezomib 1 dose IV DIRECTED 08/28/19 01/23/20 History Lenalidomide [Revlimid] 25 mg PO DIRECTED 08/28/19 01/23/20 History Acetaminophen [Tylenol Extra 1,000 mg PO Q6H PRN 09/13/19 01/23/20 History Strength] Calcium Carbonate 500 mg PO BID 01/10/20 01/23/20 History Docusate Sodium [Dok] 100 mg PO DAILY 01/10/20 01/23/20 History Morphine Sulfate ER [Ms Contin] 30 mg PO Q12H 01/10/20 01/23/20 History Zolpidem Tartrate [Ambien] 10 mg PO HS PRN 01/10/20 01/23/20 History oxyCODONE-APAP 10-325MG [Percocet 1 tab PO Q6H PRN 01/10/20 01/23/20 History 10-325 mg] Furosemide [Lasix] 40 mg PO BID #60 tablet 01/13/20 01/23/20 Rx Spironolactone [Aldactone] 25 mg PO BID #60 tab 01/13/20 01/23/20 Rx Allergies Allergy/AdvReac Type Severity Reaction Status Date / Time fentanyl AdvReac Nausea & Verified 01/23/20 08:13 Vomiting/trouble urinating Physical Exam Vitals: Vital Signs Temp Pulse Pulse Resp BP BP Pulse Ox 01/23/20 13:16 97.3 F L 92 19 103/62 95 01/23/20 12:32 90 16 98/62 95 01/23/20 12:31 90 16 98/62 95 01/23/20 12:00 90 16 105/66 95 01/23/20 11:00 90 16 117/68 95 01/23/20 08:00 91 16 98/62 97 01/23/20 06:50 91 18 105/66 95 01/23/20 05:44 88 18 117/68 95 01/23/20 03:47 98.2 F 102 H 18 101/58 95 Intake and Output 01/22/20 01/23/20 01/23/20 22:59 06:59 14:59 Other: Weight 102.512 kg Results CBC & Chem 7: 01/23/20 05:30 01/23/20 05:30 Labs: Abnormal Lab Results - Last 24 Hours (Table) 01/23/20 01/23/20 01/23/20 Range/Units 05:30 05:30 05:30 WBC 1.9 L (3.8-10.6) k/uL RBC 2.66 L (4.30-5.90) m/uL Hgb 8.5 L (13.0-17.5) gm/dL Hct 26.6 L (39.0-53.0) % MCV 100.2 H (80.0-100.0) fL RDW 19.9 H (11.5-15.5) % Plt Count 63 L (150-450) k/uL Neutrophils # (Manual) 0.90 L (1.3-7.7) k/uL Lymphocytes # (Manual) 0.82 L (1.0-4.8) k/uL Nucleated RBCs 5 H (0-0) /100 WBC Sodium 135 L (137-145) mmol/L Chloride 97 L (98-107) mmol/L BUN 21 H (9-20) mg/dL Glucose 115 H (74-99) mg/dL Calcium 8.0 L (8.4-10.2) mg/dL Total Bilirubin 2.3 H (0.2-1.3) mg/dL AST 95 H (17-59) U/L ALT 65 H (4-49) U/L Alkaline Phosphatase 279 H (38-126) U/L Albumin 3.3 L (3.5-5.0) g/dL Urine Protein 1+ H (Negative) Urine Blood Moderate H (Negative) Urine Bilirubin 1+ H (Negative) Urine Bacteria Rare H (None) /hpf Hyaline Casts 55 H (0-2) /lpf Urine Mucus Occasional H (None) /hpf
[2020-01-23] MEDS: FUROSEMIDE 40 MG TAB PO SCH (19:17)
[2020-01-23] MEDS ORDERED: FUROSEMIDE 40 MG TAB PO SCH (21:00)
[2020-01-23] MEDS ORDERED: ATORVASTATIN 10 MG TAB PO SCH (21:00)
[2020-01-23] MEDS ORDERED: CALCIUM CARBONATE 500 MG PO SCH (21:00)
[2020-01-23] MEDS ORDERED: SPIRONOLACTONE 25 MG TAB PO SCH (21:00)
[2020-01-23] MEDS: CALCIUM CARBONATE 500 MG CHEWABLE PO SCH (21:01)
[2020-01-23] MEDS: ATORVASTATIN 10 MG TAB PO SCH (21:01)
[2020-01-23] MEDS: MORPHINE SULFATE ER 30 MG TABLET PO SCH (21:01)
[2020-01-23] MEDS: SPIRONOLACTONE 25 MG TAB PO SCH (21:02)
[2020-01-24] MEDS: MORPHINE SULFATE ER 30 MG TABLET PO SCH ×4 (05:02→20:03)
[2020-01-24 06:52] LABS: Anisocytosis Slight; HCT 25.5 % (39.0-53.0); HGB 8.3 gm/dL (13.0-17.5); Hypochromasia Slight; MCH 32.7 pg (25.0-35.0); MCHC 32.7 g/dL (31.0-37.0); MCV 99.9 fL (80.0-100.0); Macrocytosis Moderate; Mean Platelet Volume 8.8; RBC 2.56 m/uL (4.30-5.90); RDW 19.7 % (11.5-15.5); WBC 1.5 k/uL (3.8-10.6)
[2020-01-24 06:57] LABS: Platelet Count 63 k/uL (150-450)
[2020-01-24 07:26] LABS: ALT 68 U/L (4-49); AST 101 U/L (17-59); African American GFR (CKD) >90 (>60 ml/min/1.73 sqM); Albumin 2.9 g/dL (3.5-5.0); Alkaline Phosphatase 292 U/L (38-126); Anion Gap 7 mmol/L; Blood Urea Nitrogen 16 mg/dL (9-20); Calcium 7.8 mg/dL (8.4-10.2); Carbon Dioxide 30 mmol/L (22-30); Chloride 99 mmol/L (98-107); Glucose 90 mg/dL (74-99); Non-African American GFR(CKD) >90 (>60 ml/min/1.73 sqM); Potassium 3.5 mmol/L (3.5-5.1); Sodium 136 mmol/L (137-145); Total Bilirubin 2.4 mg/dL (0.2-1.3); Total Protein 6.7 g/dL (6.3-8.2)
[2020-01-24] MEDS: FUROSEMIDE 40 MG TAB PO SCH ×2 (08:37→16:11)
[2020-01-24] MEDS: SPIRONOLACTONE 25 MG TAB PO SCH ×2 (08:37→20:02)
[2020-01-24] MEDS: CALCIUM CARBONATE 500 MG CHEWABLE PO SCH ×2 (08:37→20:03)
[2020-01-24] MEDS: ASPIRIN 81 MG PO SCH (08:37)
[2020-01-24] MEDS: DOCUSATE 100 MG CAP PO SCH (08:37)
[2020-01-24] MEDS ORDERED: ASPIRIN 162 MG PO SCH (09:00)
[2020-01-24] MEDS ORDERED: DOCUSATE 100 MG CAP PO SCH (09:00)
--- NOTE | 2020-01-24 09:15 | P.PN ---
Subjective Progress Note Date: 01/24/20 This is a 69-year-old male patient of Dr. Dr. Galvan, Dr. Garcia and Dr. Vieyra with past medical history of hyperlipidemia, hypertension, BPH and multiple myeloma who had right total knee arthroplasty few month ago at [facility] with a complication specially with been thrombocytopenic and was diagnosed with multiple myeloma initially seen oncologist at [facility] in subsequent transferred to Dr. Garcia service. Patient had a recent hospitalization January 09 and was discharged home on January 12. He has been undergoing radiation therapy with Dr. Vieyra to the sacrum and sternum and he states he has 2 treatments left. He is also on chemotherapy but this recently changed according to the patient's . He also has a meeting scheduled with ASHLEY Marie with oncology regarding current treatment. verbalizes that she is not sure the chemotherapy is working and not sure if they want to continue. Patient does verbalize that he plans to complete his course of radiation therapy. is history that he had a fall at 2:30 this morning while at home. Edema is better and he has lost 20 pounds since the worst point but still continues to have lower extremity edema. Patient was complaining of increasing generalized weakness and debility. Patient came into [facility] emergency center for evaluation. Patient was afebrile, heart rate 102, blood pressure 101/58, pulse ox 95% on room air. WBC 1.9, hemoglobin 8.5, platelet count 63. Sodium 135, potassium 4.0, chloride 97, CO2 27, BUN 21 creatinine 0.85. Blood sugar 115. Urinalysis cloudy, blood moderate, leukoesterase and nitrate negative. Patient was started on IV fluids and given 1 dose of morphine, admitted to the [facility] floor. Consults added for oncology and radiation oncology. 01/23: Patient has been afebrile, heart rate 88, blood pressure 104/59, pulse ox 98% on room air. Repeat blood work reveals WBC of 1.5, hemoglobin 8.3 and platelet count 63. Sodium 136, renal function normal. Total bilirubin 2.4, AST 101, ALT 68, alkaline phosphatase 292. CAT scan of the abdomen and pelvis revealed enlarging soft tissue mass posterior medial right hemipelvis. Left posterior chest wall mass similar in appearance. Minimal left and small stable right pleural effusions. Patient has not undergone radiation therapy as he was hoping to complete his course. We will recontact oncology and radiation oncology as there has been computer issues and orders have not been processing correctly. IV fluids have been discontinued. He continues to have significant weakness and lower extremity edema. Patient had a bowel movement last night. PT and OT consult will be added. Review of Systems Constitutional: No fever, no chills, no night sweats. No weight change. Report s generalized weakness, Reports fatigue, Reports lethargy. No daytime sleepiness. EENT: No headache. No blurred vision or double vision, no loss of vision. No dizziness. No nasal drainage or congestion. No epistaxis. No sore throat. Lungs: No shortness of breath, cough, no sputum production. No wheezing. Cardiovascular: No chest pain, no lower extremity edema. No palpitations. No paroxysmal nocturnal dyspnea. No orthopnea. No lightheadedness or dizziness. No syncopal episodes. Abdominal: No abdominal pain. No nausea, vomiting. No diarrhea. No constipation. No bloody or tarry stools. Reports loss of appetite. Genitourinary: No dysuria, increased frequency, urgency. No urinary retention. Musculoskeletal: No myalgias. Reports muscle weakness, Reports gait dysfunction, Reports frequent falls. Reports back pain. No neck pain. Integumentary: No wounds, no lesions. No rash or pruritus. No unusual bruising. Neurologic: No aphasia. No facial droop. No change in mentation. No head injury. No headache. No paralysis. No paresthesia. Psychiatric: No depression. No anxiety. No mood swings. Endocrine: No abnormal blood sugars. No weight change. No excessive sweating or thirst. No cold intolerance. Physical Examination Gen: This is a 69-year-old male. He is resting in bed and appears to be comfortable and in no acute distress. HEENT: Head is atraumatic, normocephalic. Pupils equal, round. Sclerae is anicteric. Oral mucous membranes are dry. Ecchymosis to the left Orbit. NECK: Supple. No JVD. No lymphadenopathy. No thyromegaly. LUNGS: Clear to auscultation. No wheezes or rhonchi. No intercostal retractions. HEART: Regular rate and rhythm. No murmur. ABDOMEN: Soft. Bowel sounds are present. No masses. No tenderness. EXTREMITIES: dorsalis pedis +2 bilaterally. 2+ pedal edema bilaterally. No calf tenderness. NEUROLOGICAL: Patient is awake, alert and oriented x3. Cranial nerves 2 through 12 are grossly intact. Generalized weakness noted. Assessment and Plan 1. Severe worsening pancytopenia secondary to chemotherapy and multiple myeloma. 2. Fall secondary to dehydration. PT and OT consults. 3. Dehydration. Patient is status post 1 L of IV fluids. Discontinue IV fluids. 4. Multiple myeloma. Consult with oncology and radiation oncology. 5. Chronic kidney disease stage II. 6. Lower extremity edema. Continue oral Lasix and Aldactone 25 mg twice daily. 7. Hyperlipidemia. Lipitor 10 mg daily. 8. Chronic pain syndrome. Continue oxycodone, morphine as needed, Tylenol as needed. 9. GI prophylaxis. Protonix. 10. DVT prophylaxis. Hold heparin due to thrombocytopenia. 11. Elevated liver function tests most likely secondary to multiple myeloma. Continue to monitor. 12. COVID-19 infection not present. CODE STATUS: Full code Discharge plan: To be determined. PT and OT will be added. Impression and plan of care have been directed as dictated by the signing physician. Didi Edmond nurse practitioner acting as scribe for signing physician. Objective - Vital Signs Vital signs: Vital Signs Temp 97.7 F 01/24/20 04:45 Pulse 88 01/24/20 04:45 Resp 16 01/24/20 04:45 BP 104/59 01/24/20 04:45 Pulse Ox 98 01/24/20 06:15 Intake & Output 01/23/20 01/24/20 01/24/20 18:59 06:59 18:59 Intake Total 2045 Output Total 100 850 Balance -100 1195 Weight 102.512 kg Intake: Intake, IV Titration 825 Amount Sodium Chloride 0.9% 1, 825 000 ml @ 75 mls/hr IV . [id number] [facility] Rx#:[id number] Oral 1220 Output: Urine 100 850 Other: Voiding Method Toilet Toilet Urinal Urinal - Labs CBC & Chem 7: 01/24/20 06:24 01/24/20 06:24 Labs: Abnormal Lab Results - Last 24 Hours (Table) 01/24/20 01/24/20 Range/Units 06:24 06:24 WBC 1.5 L (3.8-10.6) k/uL RBC 2.56 L (4.30-5.90) m/uL Hgb 8.3 L (13.0-17.5) gm/dL Hct 25.5 L (39.0-53.0) % RDW 19.7 H (11.5-15.5) % Plt Count 63 L (150-450) k/uL Sodium 136 L (137-145) mmol/L Calcium 7.8 L (8.4-10.2) mg/dL Total Bilirubin 2.4 H (0.2-1.3) mg/dL AST 101 H (17-59) U/L ALT 68 H (4-49) U/L Alkaline Phosphatase 292 H (38-126) U/L Albumin 2.9 L (3.5-5.0) g/dL
[2020-01-24] MEDS: oxyCODONE-APAP 10-325MG 1 EACH TAB PO PRN (12:12)
[2020-01-24] MEDS: MORPHINE SULFATE 4 MG/ML SYRINGE IV PRN (14:00)
--- NOTE | 2020-01-24 18:10 | P.PN ---
Subjective Progress Note Date: 01/24/20 Principal diagnosis: myeloma, recent fall The patient reports that he is feeling a bit better today. He notes his pain is approximately 3 out of 10, still mostly involving the right hip and lower extremity. He feels the right lower extremity swelling continues to improve. Objective - Vital Signs Vital signs: Vital Signs Temp 97.7 F 01/24/20 12:23 Pulse 89 01/24/20 12:23 Resp 18 01/24/20 12:23 BP 95/51 01/24/20 12:23 Pulse Ox 96 01/24/20 12:23 Intake & Output 01/23/20 01/24/20 01/24/20 18:59 06:59 18:59 Intake Total 2045 680 Output Total 100 850 300 Balance -100 1195 380 Weight 102.512 kg 102.512 kg Intake: Intake, IV Titration 825 Amount Sodium Chloride 0.9% 1, 825 000 ml @ 75 mls/hr IV . [id number] [facility] Rx#:[id number] Oral 1220 680 Output: Urine 100 850 300 Other: Voiding Method Toilet Toilet Toilet Urinal Urinal Urinal - Constitutional General appearance: Present: average body habitus, no acute distress - EENT Eyes: Present: EOMI, PERRLA ENT: Present: hearing grossly normal - Neck Neck: Absent: lymphadenopathy - Respiratory Respiratory: bilateral: CTA - Cardiovascular Rhythm: regular - Gastrointestinal General gastrointestinal: Present: distended - Integumentary Integumentary: Present: calor - Neurologic Neurologic: Present: CNII-XII intact - Psychiatric Psychiatric: Present: A&O x's 3, appropriate affect - Labs CBC & Chem 7: 01/24/20 06:24 01/24/20 06:24 Labs: Abnormal Lab Results - Last 24 Hours (Table) 01/24/20 01/24/20 Range/Units 06:24 06:24 WBC 1.5 L (3.8-10.6) k/uL RBC 2.56 L (4.30-5.90) m/uL Hgb 8.3 L (13.0-17.5) gm/dL Hct 25.5 L (39.0-53.0) % RDW 19.7 H (11.5-15.5) % Plt Count 63 L (150-450) k/uL Sodium 136 L (137-145) mmol/L Calcium 7.8 L (8.4-10.2) mg/dL Total Bilirubin 2.4 H (0.2-1.3) mg/dL AST 101 H (17-59) U/L ALT 68 H (4-49) U/L Alkaline Phosphatase 292 H (38-126) U/L Albumin 2.9 L (3.5-5.0) g/dL Assessment and Plan Plan: The patient is a 69-year-old male with a history of multiple myeloma with evidence of recent disease progression on first line therapy. He has initiated palliative radiotherapy to a right sided abdominal mass showing mass effect on the nearby veins. He was hospitalized secondary to fall and dehydration. He appears to be improving clinically. 1. Right lower extremity swelling: Improving on radiotherapy, the patient was able to undergo treatment today, and will finish his his fifth of 5 treatments tomorrow. His pain control is improved as well. 2. Myeloma: The patient has evidence of progressive disease, and is now looking into second line therapy. He is currently pancytopenic and followed by oncology. Despite relatively large soft tissue swellings involving the right lateral rib cage, and left posterior rib cage, the patient remains asymptomatic at these sites. Time with Patient: Less than 30
[2020-01-24] MEDS: ATORVASTATIN 10 MG TAB PO SCH (20:02)
[2020-01-25] MEDS: oxyCODONE-APAP 10-325MG 1 EACH TAB PO PRN (00:21)
[2020-01-25 06:29] LABS: Anisocytosis Moderate; HCT 26.5 % (39.0-53.0); HGB 8.4 gm/dL (13.0-17.5); Hypochromasia Slight; MCH 31.6 pg (25.0-35.0); MCHC 31.6 g/dL (31.0-37.0); MCV 99.8 fL (80.0-100.0); Macrocytosis Moderate; Mean Platelet Volume 8.8; RBC 2.65 m/uL (4.30-5.90); RDW 20.3 % (11.5-15.5); WBC 1.9 k/uL (3.8-10.6)
[2020-01-25 06:40] LABS: ALT 74 U/L (4-49); AST 112 U/L (17-59); African American GFR (CKD) >90 (>60 ml/min/1.73 sqM); Alkaline Phosphatase 314 U/L (38-126); Anion Gap 9 mmol/L; Blood Urea Nitrogen 17 mg/dL (9-20); Calcium 7.9 mg/dL (8.4-10.2); Carbon Dioxide 28 mmol/L (22-30); Chloride 100 mmol/L (98-107); Glucose 84 mg/dL (74-99); Non-African American GFR(CKD) 90 (>60 ml/min/1.73 sqM); Potassium 3.9 mmol/L (3.5-5.1); Sodium 137 mmol/L (137-145); Total Bilirubin 2.6 mg/dL (0.2-1.3); Total Protein 6.8 g/dL (6.3-8.2)
[2020-01-25 06:53] LABS: Platelet Count 63 k/uL (150-450)
[2020-01-25] MEDS ORDERED: PANTOPRAZOLE 40 MG TABLET PO SCH (07:30)
[2020-01-25] MEDS: MORPHINE SULFATE ER 30 MG TABLET PO SCH (08:32)
[2020-01-25] MEDS: FUROSEMIDE 40 MG TAB PO SCH ×2 (08:33→17:44)
[2020-01-25] MEDS: ASPIRIN 81 MG PO SCH (08:33)
[2020-01-25] MEDS: SPIRONOLACTONE 25 MG TAB PO SCH (08:33)
[2020-01-25] MEDS: DOCUSATE 100 MG CAP PO SCH (08:33)
[2020-01-25] MEDS: CALCIUM CARBONATE 500 MG CHEWABLE PO SCH (08:34)
[2020-01-25 10:06] VITALS: BMI 30.6
--- NOTE | 2020-01-25 11:51 | P.CONS ---
History of Present Illness - Chief Complaint medical debility - History of Present Illness I had the opportunity to see patient for inpatient rehab consultation with regard to medical debility. He was admitted to [facility] January 22 with known multiple myeloma currently receiving chemo and radiation therapy. Training with Dr. Galvan, Jose and Jarrell.right hip x-ray negative, demonstrates good alignment over prosthesis. CT of head demonstrates mild atrophy. CT of C-spine demonstrate multilevel spondylitic change. CT of abdomen and pelvis demonstrates increasing pelvic mass as well as left chest wall mass and mild effusions. PT reports supervision to minimal assistance bed mobility. Supervision gait 75 feet with roller walker. OT prescribed. Previous functional history as elicited patient: 69-year-old right-handed white male who is lives in one form with . generally does the cooking and may consider the laundry and either can drive. Patient and retired. Describes independent with sitdown shower and gait without device previously. PMD Dr. Galvan. Denies tobacco or alcohol recently. Family history mother with multiple myeloma. Review of Systems Review of systems: ENT: Denies sneezes or discharge. Eyes: Denies discharge or photophobia. Cardiac: Denies chest pain or palpitation. Pulmonary: Denies cough or shortness of breath. Gastrointestinal: Denies nausea, emesis, constipation, diarrhea. Genitourinary: Denies discharge or frequency. Musculoskeletal: Denies muscle or bone aches.lower extremity edema. Neurologic: weakness right leg more so than left. Endocrine: Denies shakes or sweats. Oncology: Denies cancers. Dermatologic: Denies rash, itching, pruritus. ALLERGY/immunology: Denies sneezes, rashes. Past Medical History Past Medical History: Cancer, Hyperlipidemia Additional Past Medical History / Comment(s): multiple myeloma diagnosed 06/2019, diverticulosis, edema right leg since 06/2019, transaminitis/pancytopenia, oral chemo last done 01/21/20, uses walker at home, 30 lb weight loss since CA diagnosis 07/05, History of Any Multi-Drug Resistant Organisms: None Reported Past Surgical History: Orthopedic Surgery, Tonsillectomy Additional Past Surgical History / Comment(s): Right total knee arthroplasty with previous arthroscopically on bilateral knees, 2 arthroscopics on delisa shoulders, right elbow tendon sx, EGD, rt hip replacement, colonoscopy/egd Past Anesthesia/Blood Transfusion Reactions: No Reported Reaction Additional Past Anesthesia/Blood Transfusion Reaction / Comm: Pt has received platelets in the past without reaction. Past Psychological History: No Psychological Hx Reported Additional Psychological History / Comment(s): Pt resides with his spouse. He is up with walker. Smoking Status: Never smoker Past Alcohol Use History: Rare Additional Past Alcohol Use History / Comment(s): Patient is a lifelong nonsmoker, no illicit drug use, no marijuana use. Occasional alcohol use. Past Drug Use History: None Reported - Past Family History Father Additional Family Medical History / Comment(s): Father is alive at age 93 yrs old with no major medical problems. He has had a total hip replacement. Mother Family Medical History: Cancer Additional Family Medical History / Comment(s): Mother at age 69 from Multiple myeloma/bone cancer. Brother(s) Additional Family Medical History / Comment(s): Patient has 1 brother that is alive at age 72 with no major medical problems. Patient does not have any sisters. Patient has 2 sons with no major medical problems. Medications and Allergies Home Medications Medication Instructions Recorded Confirmed Type Aspirin EC [Ecotrin Low Dose] 162 mg PO DAILY 08/28/19 01/23/20 History Atorvastatin Calcium [Lipitor] 10 mg PO HS 08/28/19 01/23/20 History Bortezomib 1 dose IV DIRECTED 08/28/19 01/23/20 History Lenalidomide [Revlimid] 25 mg PO DIRECTED 08/28/19 01/23/20 History Acetaminophen [Tylenol Extra 1,000 mg PO Q6H PRN 09/13/19 01/23/20 History Strength] Calcium Carbonate 500 mg PO BID 01/10/20 01/23/20 History Docusate Sodium [Dok] 100 mg PO DAILY 01/10/20 01/23/20 History Morphine Sulfate ER [Ms Contin] 30 mg PO Q12H 01/10/20 01/23/20 History Zolpidem Tartrate [Ambien] 10 mg PO HS PRN 01/10/20 01/23/20 History oxyCODONE-APAP 10-325MG [Percocet 1 tab PO Q6H PRN 01/10/20 01/23/20 History 10-325 mg] Furosemide [Lasix] 40 mg PO BID #60 tablet 01/13/20 01/23/20 Rx Spironolactone [Aldactone] 25 mg PO BID #60 tab 01/13/20 01/23/20 Rx Allergies Allergy/AdvReac Type Severity Reaction Status Date / Time fentanyl AdvReac Nausea & Verified 01/23/20 08:13 Vomiting/trouble urinating Physical Exam Vitals: Vital Signs Temp Pulse Resp BP Pulse Ox 01/25/20 04:49 98.3 F 97 20 115/76 93 L 01/24/20 21:00 97.4 F L 89 20 112/67 94 L 01/24/20 12:23 97.7 F 89 18 95/51 96 Intake and Output 01/24/20 01/25/20 01/25/20 22:59 06:59 14:59 Intake Total 250 400 Balance 250 400 Intake: Oral 250 400 Other: Voiding Method Toilet Toilet Urinal Urinal # Voids 2 2 Skin: Good color, texture, turgor. General: overweight build and comfortable appearance. Head: Normocephalic, atraumatic. Eyes: Symmetric. Pupils equal round. Ears: Symmetric. Hearing within normal limits. Mouth: Clear. Neck: Supple. Carotid without bruit. Cardiac: Regular rate and rhythm. Lungs: Clear anteriorly and posteriorly. Abdomen: Soft active nontender. Extremities: Normal tone.3+ edema right lower leg and 2+ edema left lower leg. Neurological: Mental status: Alert, cooperative, pleasant. Cranial nerves: Symmetric facial tone and trapezius. Motor: can actively elevate both arms and left leg but not right leg. Sensation: Intact throughout. DTRs: Symmetric and equal throughout. Mobility: reports required assistance transfer from bed to Aleah chair. Results CBC & Chem 7: 01/25/20 06:08 01/25/20 06:08 Labs: Abnormal Lab Results - Last 24 Hours (Table) 01/25/20 01/25/20 Range/Units 06:08 06:08 WBC 1.9 L (3.8-10.6) k/uL RBC 2.65 L (4.30-5.90) m/uL Hgb 8.4 L (13.0-17.5) gm/dL Hct 26.5 L (39.0-53.0) % RDW 20.3 H (11.5-15.5) % Plt Count 63 L (150-450) k/uL Calcium 7.9 L (8.4-10.2) mg/dL Total Bilirubin 2.6 H (0.2-1.3) mg/dL AST 112 H (17-59) U/L ALT 74 H (4-49) U/L Alkaline Phosphatase 314 H (38-126) U/L Albumin 3.0 L (3.5-5.0) g/dL Assessment and Plan (1) Generalized weakness Current Visit: Yes Status: Acute Code(s): R53.1 - WEAKNESS SNOMED Code(s): 76216243 (2) Multiple myeloma Current Visit: Yes Status: Acute Code(s): C90.00 - MULTIPLE MYELOMA NOT HAVING ACHIEVED REMISSION SNOMED Code(s): 911724126 Plan: impression: 1. Medical debility with generalized weakness. 2. Multiple myeloma. 3. Anasarca. 4. Dyslipidemia. comments and plan: At this time PT ongoing in fact is recommended home with therapies. I would await OT report as well as progress over weekend but home with support is possible.
[2020-01-25 13:48] VITALS: BP 109/60; PULSE 92; RESP 16; TEMP 98
[2020-01-25] MEDS: MORPHINE SULFATE 4 MG/ML SYRINGE IV PRN (14:01)
--- NOTE | 2020-01-25 16:05 | P.CONS ---
History of Present Illness - Reason for Consult Consult date: 01/25/20 multiple myeloma Requesting physician: Didi Edmond - Chief Complaint Weakness and Fall - History of Present Illness Multiple Myeloma Follow Up Visit HPI : Manny presented to [facility] for scheduled R knee arthroplasty, he was found to have mild anemia, as well as, mild CKI (Highest creatinine 1.25 Jun 2019). 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 He reported progressive L shoulder and mid/lower back pain with weakness X 6 months, but didn't seek medical attention. He had Bone marrow aspirate & biopsy on 07/16/2019 at [facility] revealing 80% abnormal Plasma cell C/W plasma cell myeloma. PET Scan on 08/03/19 at [facility] revealed diffuse changes C/W multiple myeloma. He is C/O progressive mid back pain to L side of spine 2 for 2 weeks after hearing a "crack" in spine. The patient is a lifetime non smoker, denies ETOH use, very healthy and normaly active. 09/06/19: Tolerating RVD well, C/O exertional fatigue/dyspnea. Tolerating RVD well. He had severe abdominal pain, CT Scan negative, EGD revealed gastritis, symptoms mostly resolved. C/O mild low back pain. 10/04/19: CO excessive fatigue & SOB, had Thoracentesis> Cytology + for plasma cells C/W Myeloma involvement Tolerating RVD well. 10/16/19: Feels well, C/O exertional dyspnea, comfortable at rest, has minimal pain, tolerating RVD well, has no diarrhea or peripheral neuropathy. 11/09/19: Feels well, C/O fatigue & lack of stamina, as well as, exertional dyspnea. Tolerating RVD well. 11/23/19: Feels well, tired but overall feels better with less pain, has minimal SOB. 12/18/19: Not doing well, has severe R hip pian X 2 weeks, having hard time standing, walking or laying in flat position due to pain, as wellas, SOB. Review of Systems A 14 point review of systems assessed and completed and all negative except HPI Past Medical History Past Medical History: Cancer, Hyperlipidemia Additional Past Medical History / Comment(s): multiple myeloma diagnosed 06/2019, diverticulosis, edema right leg since 06/2019, transaminitis/panc ytopenia, oral chemo last done 01/21/20, uses walker at home, 30 lb weight loss since CA diagnosis 07/05, History of Any Multi-Drug Resistant Organisms: None Reported Past Surgical History: Orthopedic Surgery, Tonsillectomy Additional Past Surgical History / Comment(s): Right total knee arthroplasty with previous arthroscopically on bilateral knees, 2 arthroscopics on delisa shoulders, right elbow tendon sx, EGD, rt hip replacement, colonoscopy/egd Past Anesthesia/Blood Transfusion Reactions: No Reported Reaction Additional Past Anesthesia/Blood Transfusion Reaction / Comm: Pt has received platelets in the past without reaction. Past Psychological History: No Psychological Hx Reported Additional Psychological History / Comment(s): Pt resides with his spouse. He is up with walker. Smoking Status: Never smoker Past Alcohol Use History: Rare Additional Past Alcohol Use History / Comment(s): Patient is a lifelong nonsmoker, no illicit drug use, no marijuana use. Occasional alcohol use. Past Drug Use History: None Reported - Past Family History Father Additional Family Medical History / Comment(s): Father is alive at age 93 yrs old with no major medical problems. He has had a total hip replacement. Mother Family Medical History: Cancer Additional Family Medical History / Comment(s): Mother at age 69 from Multiple myeloma/bone cancer. Brother(s) Additional Family Medical History / Comment(s): Patient has 1 brother that is alive at age 72 with no major medical problems. Patient does not have any sisters. Patient has 2 sons with no major medical problems. Medications and Allergies Home Medications Medication Instructions Recorded Confirmed Type Aspirin EC [Ecotrin Low Dose] 162 mg PO DAILY 08/28/19 01/23/20 History Atorvastatin Calcium [Lipitor] 10 mg PO HS 08/28/19 01/23/20 History Bortezomib 1 dose IV DIRECTED 08/28/19 01/23/20 History Lenalidomide [Revlimid] 25 mg PO DIRECTED 08/28/19 01/23/20 History Acetaminophen [Tylenol Extra 1,000 mg PO Q6H PRN 09/13/19 01/23/20 History Strength] Calcium Carbonate 500 mg PO BID 01/10/20 01/23/20 History Docusate Sodium [Dok] 100 mg PO DAILY 01/10/20 01/23/20 History Morphine Sulfate ER [Ms Contin] 30 mg PO Q12H 01/10/20 01/23/20 History Zolpidem Tartrate [Ambien] 10 mg PO HS PRN 01/10/20 01/23/20 History oxyCODONE-APAP 10-325MG [Percocet 1 tab PO Q6H PRN 01/10/20 01/23/20 History 10-325 mg] Furosemide [Lasix] 40 mg PO BID #60 tablet 01/13/20 01/23/20 Rx Spironolactone [Aldactone] 25 mg PO BID #60 tab 01/13/20 01/23/20 Rx Allergies Allergy/AdvReac Type Severity Reaction Status Date / Time fentanyl AdvReac Nausea & Verified 01/23/20 08:13 Vomiting/trouble urinating Physical Exam Vitals: Vital Signs Temp Pulse Pulse Resp BP Pulse Ox 01/25/20 13:45 98.0 F 98 92 16 109/60 92 L 01/25/20 04:49 98.3 F 97 20 115/76 93 L 01/24/20 21:00 97.4 F L 89 20 112/67 94 L Intake and Output 01/25/20 01/25/20 01/25/20 06:59 14:59 22:59 Intake Total 400 Balance 400 Intake: Oral 400 Other: Voiding Method Toilet Urinal # Voids 2 6 - Constitutional General appearance: cooperative, mild distress - EENT Eyes: EOMI, PERRLA, dentition normal ENT: NA/AT, normal oropharynx - Neck Neck: normal ROM - Respiratory Respiratory: bilateral: diminished (lower lobes) - Cardiovascular Rhythm: regular Heart sounds: normal: S1, S2 leg Peripheral Edema: bilateral: 1+ - Gastrointestinal General gastrointestinal: distended, soft, tenderness - Integumentary Integumentary: pale - Neurologic Neurologic: CNII-XII intact - Musculoskeletal Musculoskeletal: strength equal bilaterally - Psychiatric Psychiatric: A&O x's 3, appropriate affect, intact judgment & insight Results CBC & Chem 7: 01/25/20 06:08 01/25/20 06:08 Labs: Abnormal Lab Results - Last 24 Hours (Table) 01/25/20 01/25/20 Range/Units 06:08 06:08 WBC 1.9 L (3.8-10.6) k/uL RBC 2.65 L (4.30-5.90) m/uL Hgb 8.4 L (13.0-17.5) gm/dL Hct 26.5 L (39.0-53.0) % RDW 20.3 H (11.5-15.5) % Plt Count 63 L (150-450) k/uL Calcium 7.9 L (8.4-10.2) mg/dL Total Bilirubin 2.6 H (0.2-1.3) mg/dL AST 112 H (17-59) U/L ALT 74 H (4-49) U/L Alkaline Phosphatase 314 H (38-126) U/L Albumin 3.0 L (3.5-5.0) g/dL CT scan - abdomen: report reviewed CT Scan - head: report reviewed CT scan - pelvis: report reviewed Assessment and Plan (1) Anasarca Status: Acute Code(s): R60.1 - GENERALIZED EDEMA SNOMED Code(s): 792758692 (2) Multiple myeloma Status: Acute Code(s): C90.00 - MULTIPLE MYELOMA NOT HAVING ACHIEVED REMISSION SNOMED Code(s): 892384105 (3) Pancytopenia Status: Acute Code(s): D61.818 - OTHER PANCYTOPENIA SNOMED Code(s): 013673137 (4) Transaminitis Status: Acute Code(s): R74.0 - NONSPEC ELEV OF LEVELS OF TRANSAMNS & LACTIC ACID DEHYDRGNSE SNOMED Code(s): 193567755 Plan: Assessment and Plan Multiple Myeloma: - Recent disease progression on first line therapy - Dr. Vieyra is following for palliative radiation to right sided abdominal mass effect on nearby vein - CT Scans Reviewed: Liver abnormalities, Soft Tissue mass Ribs and medial right hemipelvis - Kyprolis, Dex and Pomalyst ordered to begin 01/28/20 - May initiate Dex 40mg days 1-4 while inpatient as treatment for progressive myeloma and continue with addition regimen medications after discharge rehabilitation Recent Fall: - IPR Following - PT/OT - Chronic Illness myopathy and Weakness from overall diagnosis, progressive disease and cytopenias Dehydration: - Improving Right Lower Extremity Swelling: Secondary to compression from Right Medial SOft Tissue Mass - Improving on Radiotherapy - 5/5 treatments today - Swelling from compressive mass but also increased risk for thrombosis, doppler neg 01/10 Pancyopenia: - Monitor CBC Daily - Irradiated PRBC if less then 7, platelets less than 10 (unless s/s bleeding) - Hold ASA NSAID and AC if platelets less than 50K Increased Total Bili and Increased LFTs: - Right Lobe new liver lesions: - ?related to myeloma versus other - Will discuss with Dr. Garcia if tissue biopsy needed Plan: - Patient and comfortable with discharge home and will be seen in office Tuesday to in treatment Physician Attest: I have completed the full history and physical and agree with above dictation, dictated as a scribe.
--- NOTE | 2020-01-25 17:27 | US ---
EXAMINATION TYPE: US venous doppler duplex [facility] DATE OF EXAM: 01/25/2020 5:00 PM COMPARISON: US dated 01/10/2020 right lower extremity Doppler duplex CLINICAL HISTORY: edema and hypercoagulable state. Post right hip replacement 4 weeks ago, right leg swelling greater than left leg swelling; chemotherapy patient SIDE PERFORMED: Bilateral TECHNIQUE: The lower extremity deep venous system is examined utilizing real time linear array sonog prabha with graded compression, doppler sonography and color-flow sonography. VESSELS IMAGED: Common Femoral Vein Deep Femoral Vein Greater Saphenous Vein * Femoral Vein Popliteal Vein Small Saphenous Vein * Proximal Calf Veins (* superficial vessels) Subcutaneous edema channels are present. Right Leg: Wall thickening is noted at Right Upper Femoral Vein Valves and Upper Deep Femoral Vein V lynch, and color flow patency is documented here; otherwise, right leg is negative for DVT. Left Leg: Wall thickening also noted at upper Left Femoral Vein Valves, and color flow patency is do cumented; otherwise left leg is negative for DVT. Patient's RN, Ebony, was informed of right leg findings and requested STAT read of this US. IMPRESSION: No definite acute occlusive DVT, findings were not seen definitively on prior exam 020, low-level laminar echoes at the level of the central valves in the right lower extremity could p ossibly represent eccentric clot of indeterminate age.
== END 2020-01-25 18:12 | disposition home health service (06) | DRG 809 ==
LOC: EC 03:39 → 5NMEDONC 07:58
PROVIDERS: ADMIT Internal Medicine Geriatric Medicine; ATTEND Internal Medicine Geriatric Medicine
DX: D61.810 Antineoplastic chemotherapy induced pancytopenia (principal); C90.00 Multiple myeloma not having achieved remission; N40.0 Benign prostatic hyperplasia without lower urinary tract symptoms; E78.5 Hyperlipidemia, unspecified; Z96.651 Presence of right artificial knee joint; Z96.641 Presence of right artificial hip joint; R62.7 Adult failure to thrive; G89.4 Chronic pain syndrome; E86.0 Dehydration; W19.XXXA Unspecified fall, initial encounter; N18.2 Chronic kidney disease, stage 2 (mild); I12.9 Hypertensive chronic kidney disease with stage 1 through stage 4 chronic kidney disease, or unspecified chronic kidney disease; R60.0 Localized edema; R53.81 Other malaise; R60.1 Generalized edema; K29.70 Gastritis, unspecified, without bleeding; S00.81XA Abrasion of other part of head, initial encounter; T45.1X5A Adverse effect of antineoplastic and immunosuppressive drugs, initial encounter; Z79.899 Other long term (current) drug therapy; Z79.82 Long term (current) use of aspirin; Z88.5 Allergy status to narcotic agent; Z98.890 Other specified postprocedural states; Z80.7 Family history of other malignant neoplasms of lymphoid, hematopoietic and related tissues; Z11.59 Encounter for screening for other viral diseases; Z90.89 Acquired absence of other organs
CPT/HCPCS: 36415; 70450; 72125; 73501; 74177; 77387; 77412; 80053; 81001; 85025; 85027; 93970; 96361; 96374; 99285